=== PATIENT | male | born 1950 | race Caucasian/White ===

== ENCOUNTER → 2019-09-26 11:28 | Outpatient (BNVA) | payer MEDICARE, OTHER, SELFPAY | PROVIDERS: Family Provider Family Medicine; PCP Nurse Practitioner; Visit Provider Nurse Practitioner | DX: I48.11 Longstanding persistent atrial fibrillation (principal) | CPT/HCPCS: 80053; 84443; 85025 ==

== ENCOUNTER → 2019-09-27 09:19 | Outpatient (BNVA) | payer MEDICARE, OTHER, SELFPAY | PROVIDERS: Family Provider Family Medicine; PCP Nurse Practitioner; Visit Provider Nurse Practitioner | DX: M79.671 Pain in right foot (principal) | CPT/HCPCS: 73630 ==

== ENCOUNTER 2020-04-01 06:00 | Outpatient (RCR) | payer MEDICARE, OTHER, SELFPAY | END 2020-04-23 23:59 | disposition home or self-care (01) | LOC: TPT 06:00 | PROVIDERS: Family Provider Family Medicine; PCP Family Medicine; Referring Provider Nurse Practitioner Family; Visit Provider Nurse Practitioner Family | DX: M54.5 Low back pain (principal) | CPT/HCPCS: 97110; 97161 ==

== ENCOUNTER 2020-04-24 06:00 | Outpatient (RCR) | payer MEDICARE, OTHER, SELFPAY | END 2020-05-24 23:59 | disposition home or self-care (01) | LOC: TPT 06:00 | PROVIDERS: Family Provider Family Medicine; PCP Family Medicine; Referring Provider Nurse Practitioner Family; Visit Provider Nurse Practitioner Family | DX: M54.5 Low back pain (principal) | CPT/HCPCS: 97110; 97140; 97164 ==

== ENCOUNTER 2020-05-25 06:00 | Outpatient (RCR) | payer MEDICARE, OTHER, SELFPAY | END 2020-06-21 23:59 | disposition home or self-care (01) | LOC: TPT 06:00 | PROVIDERS: Family Provider Family Medicine; PCP Family Medicine; Referring Provider Nurse Practitioner Family; Visit Provider Nurse Practitioner Family | DX: M54.5 Low back pain (principal) | CPT/HCPCS: 97110; 97140; 97164 ==

== ENCOUNTER 2020-06-22 06:00 | Outpatient (RCR) | payer MEDICARE, OTHER, SELFPAY | END 2020-07-22 23:59 | disposition home or self-care (01) | LOC: TPT 06:00 | PROVIDERS: Family Provider Family Medicine; PCP Family Medicine; Referring Provider Nurse Practitioner Family; Visit Provider Nurse Practitioner Family | DX: M54.5 Low back pain (principal) | CPT/HCPCS: 97110; 97140 ==

== ENCOUNTER → 2020-12-24 10:25 | Outpatient (BNVA) | payer MEDICARE, OTHER, SELFPAY | PROVIDERS: Family Provider Family Medicine; PCP Nurse Practitioner; Visit Provider Nurse Practitioner | DX: I48.11 Longstanding persistent atrial fibrillation (principal); Z13.6 Encounter for screening for cardiovascular disorders; K21.9 Gastro-esophageal reflux disease without esophagitis | CPT/HCPCS: 80053; 80061; 81000; 85025 ==

== ENCOUNTER 2021-05-12 08:47 | Outpatient (CLI) | payer MEDICARE, OTHER, SELFPAY ==
[2021-05-12 09:43] LABS: Blood Urea Nitrogen 24 mg/dL (8-23); Glomerular Filtration Rate 83.7 mL/min (90-130)
--- NOTE | 2021-05-12 10:00 | CT_ITS ---
WS: [id number] CT ABDOMEN AND PELVIS WITH CONTRAST HISTORY: R10.9 - Unspecified abdominal pain TECHNIQUE: Imaging performed of the abdomen and pelvis with IV contrast. Single phase imaging of the abdomen. Coronal and sagittal reformats are submitted. All CT scans at [facility] use at [address] one of these dose optimization techniques: automated exposure control; mA and/or kV adjustment per patient size (includes targeted exams where dose is matched to clinical indication); or iterative re construction. IV CONTRAST: Omnipaque 300; 95 mL IV. Oral contrast: Yes. DLP: 1875.11 mGy.cm COMPARISON: 08/27/2018 and 03/28/2018 Lower thorax: Lung bases are clear. Heart is normal size. No hiatal hernia. Liver/biliary system: Normal size liver. There is very mild central bile duct dilatation. Probably re lated to the cholecystectomy. Gallbladder: Status post cholecystectomy. Pancreas: Normal size pancreas and pancreatic duct. No adjacent inflammation. Spleen: Normal size spleen. No mass or infarct. Adrenal glands: Normal. Right kidney: Normal size kidney. Nonobstructing tiny calcifications are present in the renal pelvis. No ureteral calcification. No mass. Left kidney: Nonobstructing renal calcifications. No solid mass or obstruction. No ureteral calcifica tion. Aorta: Mild atherosclerosis with no aneurysm. Lymphadenopathy: None. Free fluid: None. GI tract: Normal appendix. Stomach is nondistended resulting in thickening of the wall. There is mild diffuse constipation throughout the colon with overlapping and tortuous loops. There are several div erticula in the distal and sigmoid colon. No evidence for diverticulitis. Abdominal wall: Small fat-containing umbilical hernia. Pelvis: No free fluid or adenopathy within the pelvis. Normally distended urinary bladder. There is a small amount of air within the urinary bladder. No wall thickening. Bones: Advanced degenerative changes in the lumbar spine. Prior L1 kyphoplasty for compression fractu res stability. Large laminectomy defects are noted at L4 and L5. CT/CT abdomen pelvis w con* [id number] IMPRESSION: 1. Prior cholecystectomy. 2. Mild central bile duct dilatation is probably on the basis of cholecystecto my and aging. 3. Nonobstructing bilateral renal calculi. 4. Descending and sigmoid diverticulosis without acute diverticulitis. 5. Small amount of air in the urinary bladder. Differentials to consider are g as producing organisms secondary to infection or enterovesical fistula. By imag ing there is no evidence for a fistula.
[2021-05-12] MEDS: iohexol 300 mg/mL 50 mL Btl IV (11:01)
[2021-05-12] MEDS: iohexol 300 mg/mL 100 mL Btl IV (11:02)
== END 2021-05-12 08:48 | disposition home or self-care (01) ==
LOC: RAD 08:50
PROVIDERS: PCP Physician Assistant; Visit Provider Surgery
DX: R10.9 Unspecified abdominal pain (principal); Z90.49 Acquired absence of other specified parts of digestive tract; N20.0 Calculus of kidney; K57.30 Diverticulosis of large intestine without perforation or abscess without bleeding
CPT/HCPCS: 36415; 74177; 82565; 84520

== ENCOUNTER 2021-05-20 06:00 | Outpatient (RCR) | payer MEDICARE, OTHER, SELFPAY | END 2021-05-24 23:59 | disposition home or self-care (01) | LOC: TPT 06:00 | PROVIDERS: PCP Physician Assistant; Referring Provider Orthopaedic Surgery; Visit Provider Orthopaedic Surgery | DX: Z47.1 Aftercare following joint replacement surgery (principal); Z96.652 Presence of left artificial knee joint | CPT/HCPCS: 87635; 97110; 97140; 97162 ==

== ENCOUNTER 2021-05-25 06:00 | Outpatient (RCR) | payer MEDICARE, OTHER, SELFPAY | END 2021-06-21 23:59 | disposition home or self-care (01) | LOC: TPT 06:00 | PROVIDERS: PCP Physician Assistant; Referring Provider Orthopaedic Surgery; Visit Provider Orthopaedic Surgery | DX: Z47.1 Aftercare following joint replacement surgery (principal); Z96.652 Presence of left artificial knee joint | CPT/HCPCS: 97110; 97140; 97164 ==

== ENCOUNTER 2021-06-22 06:00 | Outpatient (RCR) | payer MEDICARE, OTHER, SELFPAY | END 2021-07-22 23:59 | disposition home or self-care (01) | LOC: TPT 06:00 | PROVIDERS: PCP Physician Assistant; Referring Provider Orthopaedic Surgery; Visit Provider Orthopaedic Surgery | DX: Z47.1 Aftercare following joint replacement surgery (principal); Z96.652 Presence of left artificial knee joint | CPT/HCPCS: 97110; 97140; 97164 ==

== ENCOUNTER 2021-07-23 06:00 | Outpatient (RCR) | payer MEDICARE, OTHER, SELFPAY | END 2021-08-21 23:59 | disposition home or self-care (01) | LOC: TPT 06:00 | PROVIDERS: PCP Physician Assistant; Referring Provider Orthopaedic Surgery; Visit Provider Orthopaedic Surgery | DX: Z47.1 Aftercare following joint replacement surgery (principal); Z96.652 Presence of left artificial knee joint | CPT/HCPCS: 97032; 97110; 97140 ==

== ENCOUNTER 2021-08-22 06:00 | Outpatient (RCR) | payer MEDICARE, OTHER, SELFPAY | END 2021-09-21 23:59 | disposition home or self-care (01) | LOC: TPT 06:00 | PROVIDERS: PCP Physician Assistant; Referring Provider Orthopaedic Surgery; Visit Provider Orthopaedic Surgery | DX: Z47.1 Aftercare following joint replacement surgery (principal); Z96.652 Presence of left artificial knee joint | CPT/HCPCS: 97032; 97110; 97140; 97164 ==

== ENCOUNTER 2021-10-22 06:00 | Outpatient (RCR) | payer MEDICARE, OTHER, SELFPAY | END 2021-11-21 23:59 | disposition home or self-care (01) | LOC: TPT 06:00 | PROVIDERS: PCP Physician Assistant; Referring Provider Orthopaedic Surgery; Visit Provider Orthopaedic Surgery | DX: Z47.1 Aftercare following joint replacement surgery (principal); M25.662 Stiffness of left knee, not elsewhere classified; Z96.659 Presence of unspecified artificial knee joint | CPT/HCPCS: 97032; 97110; 97140; 97164 ==

== ENCOUNTER 2021-11-22 06:00 | Outpatient (RCR) | payer MEDICARE, OTHER, SELFPAY | END 2021-12-22 23:59 | disposition home or self-care (01) | LOC: TPT 06:00 | PROVIDERS: PCP Physician Assistant; Visit Provider Orthopaedic Surgery | DX: Z96.652 Presence of left artificial knee joint (principal) | CPT/HCPCS: 97110; 97140; 97164 ==

== ENCOUNTER 2021-12-23 06:00 | Outpatient (RCR) | payer MEDICARE, OTHER, SELFPAY | END 2022-01-21 23:59 | disposition home or self-care (01) | LOC: TPT 06:00 | PROVIDERS: PCP Physician Assistant; Visit Provider Orthopaedic Surgery | DX: Z96.652 Presence of left artificial knee joint (principal) | CPT/HCPCS: 97110; 97140 ==

== ENCOUNTER 2022-01-22 06:00 | Outpatient (RCR) | payer MEDICARE, OTHER, SELFPAY | END 2022-02-08 23:59 | disposition home or self-care (01) | LOC: TPT 06:00 | PROVIDERS: PCP Physician Assistant; Visit Provider Orthopaedic Surgery | DX: Z96.652 Presence of left artificial knee joint (principal) | CPT/HCPCS: 97110; 97164 ==

== ENCOUNTER 2022-10-24 06:00 | Outpatient (RCR) | payer MEDICARE, OTHER, SELFPAY | END 2022-11-21 23:59 | disposition home or self-care (01) | LOC: APT 06:00 | PROVIDERS: Visit Provider Specialist/Technologist Athletic Trainer | DX: Z47.1 Aftercare following joint replacement surgery (principal); Z96.652 Presence of left artificial knee joint | CPT/HCPCS: 97110; 97112; 97140; 97163; 97530 ==

== ENCOUNTER 2022-11-22 06:00 | Outpatient (RCR) | payer MEDICARE, OTHER, SELFPAY | END 2022-12-22 23:59 | disposition home or self-care (01) | LOC: APT 06:00 | PROVIDERS: Visit Provider Specialist/Technologist Athletic Trainer | DX: Z47.1 Aftercare following joint replacement surgery (principal); Z96.652 Presence of left artificial knee joint | CPT/HCPCS: 97110; 97112; 97140; 97530 ==

== ENCOUNTER → 2022-12-19 08:40 | Outpatient (BNVA) | payer MEDICARE, OTHER, SELFPAY | PROVIDERS: PCP Nurse Practitioner; Visit Provider Nurse Practitioner | DX: K21.9 Gastro-esophageal reflux disease without esophagitis (principal) | CPT/HCPCS: 80053 ==

== ENCOUNTER 2022-12-23 06:00 | Outpatient (RCR) | payer MEDICARE, OTHER, SELFPAY | END 2023-01-21 23:59 | disposition home or self-care (01) | LOC: APT 06:00 | PROVIDERS: PCP Nurse Practitioner; Visit Provider Specialist/Technologist Athletic Trainer | DX: Z47.1 Aftercare following joint replacement surgery (principal); Z96.652 Presence of left artificial knee joint | CPT/HCPCS: 97110; 97140; 97530 ==

== ENCOUNTER 2023-01-22 06:00 | Outpatient (RCR) | payer MEDICARE, OTHER, SELFPAY | END 2023-02-21 23:59 | disposition home or self-care (01) | LOC: APT 06:00 | PROVIDERS: PCP Nurse Practitioner; Visit Provider Specialist/Technologist Athletic Trainer | DX: Z98.890 Other specified postprocedural states (principal) | CPT/HCPCS: 97140; 97530 ==

== ENCOUNTER 2023-02-22 06:00 | Outpatient (RCR) | payer MEDICARE, SELFPAY | END 2023-03-23 23:59 | disposition home or self-care (01) | LOC: APT 06:00 | PROVIDERS: PCP Nurse Practitioner; Visit Provider Specialist/Technologist Athletic Trainer | DX: Z47.1 Aftercare following joint replacement surgery (principal); Z96.652 Presence of left artificial knee joint | CPT/HCPCS: 97110; 97112; 97140; 97530 ==

== ENCOUNTER 2023-03-24 06:00 | Outpatient (RCR) | payer MEDICARE, SELFPAY | END 2023-04-23 23:59 | disposition home or self-care (01) | LOC: APT 06:00 | PROVIDERS: PCP Nurse Practitioner; Visit Provider Specialist/Technologist Athletic Trainer | DX: Z47.1 Aftercare following joint replacement surgery (principal); Z96.652 Presence of left artificial knee joint | CPT/HCPCS: 97110; 97112; 97530 ==

== ENCOUNTER 2024-07-31 23:05 | Emergency (ER) | payer MEDICARE, OTHER, SELFPAY ==
[2024-07-31 23:08] VITALS: BP 139/96; PULSE 60; RESP 16; TEMP 36.3; O2SAT 88; BMI 34.7
[2024-07-31 23:14] VITALS: BP 139/96; PULSE 60; RESP 17; O2SAT 92
--- NOTE | 2024-07-31 23:19 | CTR_ITS ---
PROCEDURE INFORMATION: Exam: CT Cervical Spine Without Contrast Exam date and time: 07/31/2024 11:53 PM Age: 73 years old Clinical indication: Injury or trauma; Fall; Blunt trauma; Additional info: Fall/neckpain TECHNIQUE: Imaging protocol: Computed tomography of the cervical spine without contrast. Radiation optimization: All CT scans at this facility use at least one of these dose optimization techniques: automated exposure control; mA and/or kV adjustment per patient size (includes targeted exams where dose is matched to clinical indication); or iterative reconstruction. COMPARISON: CT head wo con* [id number] 07/31/2024 11:50 PM RADIATION DOSE METRICS: Total DLP (mGy-cm): 234.17 FINDINGS: Bones: Moderate to severe multilevel spine degenerative changes including degenerative disc disease, spondylosis and facet degenerative changes. Multilevel bilateral foraminal stenosis. Lungs: Lung apices are normal. Lymph nodes: Borderline to mild bilateral supraclavicular and neck base adenopathy which may be reactive versus neoplastic. Soft tissues: Unremarkable. CT/CT cervical spin wo con* [id number] IMPRESSION: Borderline to mild bilateral supraclavicular and neck base adenopathy which may be reactive versus neoplastic.
--- NOTE | 2024-07-31 23:19 | XRR_ITS ---
PROCEDURE INFORMATION: Exam: XR Chest Exam date and time: 07/31/2024 11:20 PM Age: 73 years old Clinical indication: Injury or trauma; Fall; Blunt trauma (contusions or hematomas) TECHNIQUE: Imaging protocol: Radiologic exam of the chest. Views: 1 view. COMPARISON: CR XR ribs RT mn 3V w CXR1V [id number] 12/20/2023 1:21 PM FINDINGS: Tubes, catheters and devices: Metallic recorder/micro pacemaker device over the anterior chest wall. Stable pain management/neurostimulator device. Lungs: Unremarkable. No consolidation. Pleural spaces: Unremarkable. No pleural effusion. No pneumothorax. Heart/Mediastinum: Unremarkable. No cardiomegaly. Bones/joints: Unremarkable. Other findings: Lordotic chest x-ray. XR/XR chest 1V portable [id number] IMPRESSION: No acute findings.
--- NOTE | 2024-07-31 23:19 | CTR_ITS ---
PROCEDURE INFORMATION: Exam: CT Head Without Contrast Exam date and time: 07/31/2024 11:50 PM Age: 73 years old Clinical indication: Injury or trauma; Fall; Blunt trauma (contusions or hematomas); Additional info: Fall/head injury, on blood thinner TECHNIQUE: Imaging protocol: Computed tomography of the head without contrast. Radiation optimization: All CT scans at this facility use at least one of these dose optimization techniques: automated exposure control; mA and/or kV adjustment per patient size (includes targeted exams where dose is matched to clinical indication); or iterative reconstruction. COMPARISON: No relevant prior studies available. RADIATION DOSE METRICS: Total DLP (mGy-cm): 1372.28 FINDINGS: Brain: Normal. No hemorrhage. Unremarkable white matter. No mass effect. Cerebral ventricles: No ventriculomegaly. Paranasal sinuses: Mild left maxillary sinus disease. Mild left frontal sinus disease. Mastoid air cells: Partial right mastoidectomy. Bones: Unremarkable. No acute fracture. Soft tissues: Unremarkable. CT/CT head wo con* [id number] IMPRESSION: 1. Mild left maxillary sinus disease. 2. Mild left frontal sinus disease. 3. Partial right mastoidectomy. No acute intracranial findings.
--- NOTE | 2024-07-31 23:27 | W.ED.FALL ---
HPI - Fall General: Chief Complaint: Fall Stated Complaint: Fall Time Seen by Provider: 07/31/24 23:09 Source: patient and RN notes reviewed Mode of arrival: EMS Limitations: no limitations History of Present Illness: Patient is a 73-year-old male with history of atrial fibrillation who presents to the emergency department by EMS for a fall just prior to arrival. Patient reportedly fell while stepping out of his large full-size truck, ultimately does not remember if he simply lost his footing or if he had any preceding symptoms but does report that he hit his head and is currently on Xarelto. He is currently reporting a headache and left-sided neck pain, he does not believe that he had any dizziness, chest pain, palpitations, or other symptoms preceding the fall but again states he ultimately is not sure. Also unsure if he lost consciousness, he was reportedly on the ground on the ambulance found him. Notes history of chronic issues with his legs, and notes that he has chronic breathing issues requiring CPAP at night but denies any history of COPD. Also has previous history of CVA. He notes while he was on the ground he had some weakness of his left side, this has since resolved. No other symptoms reported at this time, patient is at baseline mentation alert and oriented x 4 with no focal neurological deficit. MD complaint: fall Onset (ago): minute(s) Fall from: from height (distance) Fall witnessed: no Place fall occurred: street Loss of consciousness: Unsure Prolonged down time: unclear Symptoms prior to fall: other (unsure) Location of injury: head and neck Associated symptoms-after fall: Reports headache(s) and neck pain; Denies abdominal pain, chest pain or lightheadedness Related Data Home Medications ?Medication ?Instructions ?Recorded ?Confirmed cetirizine 10 mg capsule 10 mg PO DAILY 05/06/19 10/23/23 oxycodone 7.5 mg PO Q4H 05/06/19 10/23/23 rosuvastatin 10 mg tablet 10 mg PO ONCE 05/06/19 10/23/23 tamsulosin 0.4 mg capsule 0.4 mg PO BID 05/06/19 10/23/23 alendronate 70 mg tablet (Fosamax) mg PO .weekly 12/29/21 10/23/23 calcium 500 mg (as 1 tab PO .2 times day 12/29/21 10/23/23 carbonate)-vitamin D3 15 mcg (600 unit) tablet (Os-Clark 500 + D3) memantine 21 mg capsule See Rx Instructions PO .COMPLEX 12/29/21 10/23/23 sprinkle,extended release 24hr furosemide 40 mg tablet 40 mg PO DAILY 12/15/22 10/23/23 gabapentin 300 mg capsule 300 mg PO TID 12/15/22 10/23/23 losartan 50 mg tablet 50 mg PO DAILY 12/15/22 10/23/23 potassium chloride 20 mEq 20 meq PO DAILY 12/15/22 10/23/23 tablet,extended release(part/cryst) allopurinol 100 mg tablet 100 mg PO DAILY 10/23/23 10/23/23 donepezil 10 mg tablet 10 mg PO DAILY 10/23/23 10/23/23 indapamide 2.5 mg tablet 2.5 mg PO DAILY 10/23/23 10/23/23 penicillin V potassium 500 mg 500 mg PO BID 10/23/23 10/23/23 tablet trazodone 50 mg tablet 50 mg PO DAILY 10/23/23 10/23/23 Previous Rx's ?Medication ?Instructions ?Recorded duloxetine 30 mg capsule,delayed 60 mg (2 x 30 mg) PO DAILY #90 caps 12/29/21 release (Cymbalta) famciclovir 500 mg tablet 500 mg PO Q12H PRN herpes simplex 12/15/22 #60 tabs pantoprazole 40 mg tablet,delayed 40 mg PO DAILY #90 tabs 10/23/23 release (Protonix) rivaroxaban 20 mg tablet (Xarelto) 20 mg PO DAILY #30 tabs 10/23/23 Allergies Allergy/AdvReac Type Severity Reaction Status Date / Time amoxicillin (From Augmentin) Allergy Intermediate gets Verified 07/31/24 23:13 really sick, like the flu clavulanic acid (From Allergy Intermediate gets Verified 07/31/24 23:13 Augmentin) really sick, like the flu hydromorphone (From Dilaudid) Allergy coded Verified 07/31/24 23:13 Review of Systems General: Reports: 10 or more systems reviewed and unremarkable except in HPI and below Const: Reports: other (fall); Denies: fever(s), chills or fatigue Eyes: Denies: change in vision ENMT: Denies: throat pain, ear or mastoid pain or nasal discharge Card: Denies: chest pain, palpitations, swelling of feet/ankles or lightheadedness Resp: Denies: dyspnea, productive cough or wheezing GI: Denies: abdominal pain, nausea, vomiting, diarrhea or constipation : Denies: flank pain, difficulty urinating, dysuria or urinary frequency Musc: Reports: neck pain; Denies: back pain or joint pain Skin/Breast: Denies: rash Neuro: Reports: headache(s) and numbness in extremities (left side/resolved); Denies: weakness in extremities PFSH ED PFSH: Medical History GERD (gastroesophageal reflux disease) Rachel-Sparks tear History of renal calculi Atrial fibrillation Osteoporosis Surgical History History of knee replacement Status post left inguinal hernia repair Status post right inguinal hernia repair S/P ear surgery History of umbilical hernia repair History of colonoscopy 2016, at [facility]/27/2022 History of esophagogastroduodenoscopy 2019 Status post laparoscopic cholecystectomy History of GI bleed repair GI bleed in @ [facility] History of kyphoplasty L1 2013 History of heart artery stent 2012 Family History Other Cancer Diabetes Heart disease Social History Smoking and tobacco/nicotine status: former use of tobacco/nicotine Second hand smoke exposure: No Alcohol intake: never Substance/Drug Use: never Adopted: No Caregiver/support person: No Lives independently: Yes Household members: spouse Housing: House Marital status: service: No Current occupational status: retired Do you think of yourself as: Straight/Heterosexual Current gender identity: Male Physical Exam Const: COMMON NORMALS: no acute distress, patient oriented x3 and no limitations GENERAL APPEARANCE: cooperative, comfortable and well developed ORIENTATION/CONSCIOUSNESS: Yes awake, Yes oriented to person, Yes oriented to place and Yes oriented to time HENMT: COMMON NORMALS: normocephalic, atraumatic and hearing grossly normal bilaterally HEAD & SCALP: normocephalic and atraumatic; no Deal's sign, no palpable skull fracture, no raccoon eyes and no scalp tenderness Eye: COMMON NORMALS: Equal, round and reactive pupils present, EOMs intact bilaterally and conjunctivae normal CONJUNCTIVA: Yes conjunctivae normal PUPIL: Yes Equal, round and reactive pupils present Neck/C-Spine: COMMON NORMALS: full ROM, supple and no JVD OTHER: No cervical spine tenderness Chest: COMMONS NORMALS: normal inspection of the chest and normal palpation of entire chest wall Resp: COMMON NORMALS: normal respiratory effort, No retractions, No use of accessory muscles and clear to auscultation bilaterally AUSCULTATION: clear to auscultation bilaterally Cardio: COMMON NORMALS: no JVD, regular rate, regular rhythm, No clicks present (Cardio), No murmurs present (Cardio) and No rub (Cardio) RATE: regular rate RHYTHM: regular rhythm GI: COMMON NORMALS: Normal to inspection, nondistended, normoactive bowel sounds present, Soft to palpation and non-tender AUSCULTATION: Yes normoactive bowel sounds PALPATION: Yes Soft to palpation RECTAL EXAM: Yes deferred Back/Pelvis: COMMON NORMALS: thoracic and lumbar spine normal to inspection, no thoracic nor lumbar tenderness and thoraco-lumbar ROM normal Extremity: COMMON NORMALS: normal to inspection, full ROM, capillary refill normal and no pedal edema Neuro: COMMON NORMALS: patient oriented x3, CN's II-XII intact bilaterally, moves all extremities, no focal motor deficits and no sensory deficits noted SENSORIUM/ORIENTATION: Yes oriented to person, Yes oriented to place and Yes oriented to time MOTOR EXAM: 5/5 motor strength present throughout, Pronator motor function not present, no tremor noted, Normal motor muscle tone present throughout and Motor abnormalities not present Psych: COMMON NORMALS: mental status grossly normal and Normal thought process present THOUGHT PROCESS: Normal thought process present Skin: COMMON NORMALS: no rashes or lesions noted GENERAL SKIN EXAM: no rashes or lesions noted Course Vital Signs: Vital signs: Vital Signs Temperature 97.4 F L 07/31/24 23:08 Pulse Rate 62 08/01/24 01:00 Respiratory Rate 12 08/01/24 00:30 Blood Pressure 124/92 08/01/24 01:00 Pulse Oximetry 94 08/01/24 01:00 Oxygen Delivery Me thod Room Air 07/31/24 23:08 MDM - Fall Medical Decision Making Patient presented via ambulance after a fall, history was little murky as unsure if this was preceded by symptoms or trip and fall. He is on a blood thinner and did hit his head. Stated that he had some transient left-sided numbness that resolved on arrival. Also has a history of CVA. CT head and neck cleared of any injuries. Initially was hypoxic 88% on room air, placed on 2 L but was weaned off of this prior to discharge. Does have a history of sleep apnea uses CPAP at night and family states that his oxygen does tend to run this low at night. Of note, labs showed hemoglobin 9.5, patient states he does not notice any black tarry stools or other sources of blood loss potentially, and he had no abdominal pain on exam. CT abdomen pelvis did not show any acute findings, family notes he recently had colonoscopy a year ago due to anemia for which they only found a couple of polyps which were removed. His baseline troponin was unremarkable, EKG unremarkable, coags unremarkable, and rest of lab work ultimately unremarkable. I discussed with patient importance of following up in regards to his anemia as well as for general reevaluation, patient asymptomatic at this time and family agreeing with this plan. Did discuss return precautions of which they verbalized understanding. Discussed case with Dr. Crain. Lab Data 07/31/24 23:20 07/31/24 23:20 Radiology Impressions Cervical Spine CT 07/31/24 23:19 IMPRESSION: Borderline to mild bilateral supraclavicular and neck base adenopathy which may be reactive versus neoplastic. Chest X-Ray 07/31/24 23:19 IMPRESSION: No acute findings. Head CT 07/31/24 23:19 IMPRESSION: 1. Mild left maxillary sinus disease. 2. Mild left frontal sinus disease. 3. Partial right mastoidectomy. No acute intracranial findings. Abdomen/Pelvis CT 07/31/24 23:41 IMPRESSION: No acute findings. Laboratory Results WBC 8.71 10^3/uL (3.29-11.43) 07/31/24 23:20 RBC 4.48 10^6/uL (3.85-5.65) 07/31/24 23:20 Hgb 9.50 g/dL (11.27-16.99) L 07/31/24 23:20 Hct 33.0 % (37-53) L 07/31/24 23:20 MCV 73.7 fl (82-101) L 07/31/24 23:20 MCH 21.2 pg (27-33) L 07/31/24 23:20 MCHC 28.8 g/dL (30-55) L 07/31/24 23:20 RDW 20.1 % (12.1-15.1) H 07/31/24 23:20 Plt Count 282 10^3/cmm (157-399) 07/31/24 23:20 MPV 10.0 fL (7.4-10.4) 07/31/24 23:20 Neut % (Auto) 62.5 % 07/31/24 23:20 Lymph % (Auto) 21.6 % 07/31/24 23:20 [place] % (Auto) 11.0 % 07/31/24 23:20 Eos % (Auto) 4.0 % 07/31/24 23:20 Baso % (Auto) 0.6 % 07/31/24 23:20 Neut # (Auto) 5.44 10^3/uL (1.8-7.7) 07/31/24 23:20 Lymph # (Auto) 1.9 10^3/uL (0.8-4.8) 07/31/24 23:20 [place] # (Auto) 1.0 10^3/uL (0.2-0.9) H 07/31/24 23:20 Eos # (Auto) 0.4 10^3/uL (0.0-0.8) 07/31/24 23:20 Baso # (Auto) 0.1 10^3/uL (0.0-0.1) 07/31/24 23:20 Nucleated RBC % (auto) 0 % 07/31/24 23:20 Nucleated RBCs # 0.0 /100WBC 07/31/24 23:20 PT 15.60 SECONDS (12.1-14.9) H 07/31/24 23:20 INR 1.16 (0.8-1.2) 07/31/24 23:20 APTT 31.9 SECONDS (23.9-36.7) 07/31/24 23:20 Sodium 141 mmol/L (136-145) 07/31/24 23:20 Potassium 4.1 mmol/L (3.5-5.1) 07/31/24 23:20 Chloride 103 mmol/L (98-107) 07/31/24 23:20 Carbon Dioxide 27 mmol/L (22-29) 07/31/24 23:20 Anion Gap 15.1 (5-19) 07/31/24 23:20 BUN 19 mg/dL (8-23) 07/31/24 23:20 Creatinine 1.2 mg/dL (0.7-1.2) 07/31/24 23:20 GFR Calculation Not Reportable 07/31/24 23:20 Glucose 94 mg/dL (65-115) 07/31/24 23:20 Calculated Osmolality 294 mOsm/kg (285-295) 07/31/24 23:20 Calcium 8.9 mg/dL (8.5-10.5) 07/31/24 23:20 Total Bilirubin 0.2 mg/dL (0.15-1.2) 07/31/24 23:20 AST 20 U/L (0-40) 07/31/24 23:20 ALT 11 U/L (0-41) 07/31/24 23:20 Alkaline Phosphatase 103 U/L (40-130) 07/31/24 23:20 Troponin T Baseline 16 ng/L (0-15) H 07/31/24 23:20 Total Protein 7.1 g/dL (6.6-8.7) 07/31/24 23:20 Albumin 4.1 g/dL (3.5-5.2) 07/31/24 23:20 Globulin 3.0 g/dL (1.3-4.6) 07/31/24 23:20 All radiology interpretation(s) finalized by discharge Discharge Plan Discharge Patient Disposition: Home Clinical Impression: Fall Qualifiers: Encounter type: initial encounter Qualified Code(s): W19.XXXA - Unspecified fall, initial encounter CHI (closed head injury) Qualifiers: Encounter type: initial encounter Qualified Code(s): S09.90XA - Unspecified injury of head, initial encounter Anemia Qualifiers: Anemia type: unspecified type Qualified Code(s): D64.9 - Anemia, unspecified Condition: Stable Prescriptions: No Action rosuvastatin 10 mg tablet 10 mg PO ONCE tamsulosin 0.4 mg capsule 0.4 mg PO BID oxycodone 7.5 mg PO Q4H Rx Instructions: 1/2 tab cetirizine 10 mg capsule 10 mg PO DAILY potassium chloride 20 mEq tablet,ER particles/crystals 20 meq PO DAILY furosemide 40 mg tablet 40 mg PO DAILY losartan 50 mg tablet 50 mg PO DAILY famciclovir 500 mg tablet 500 mg PO Q12H PRN (Reason: herpes simplex) Qty: 60 0RF donepezil 10 mg tablet 10 mg PO DAILY penicillin V potassium 500 mg tablet 500 mg PO BID indapamide 2.5 mg tablet 2.5 mg PO DAILY trazodone 50 mg tablet 50 mg PO DAILY allopurinol 100 mg tablet 100 mg PO DAILY pantoprazole [Protonix] 40 mg tablet,delayed release (DR/EC) 40 mg PO DAILY Qty: 90 3RF Xarelto 20 mg tablet 20 mg PO DAILY Qty: 30 11RF duloxetine [Cymbalta] 30 mg capsule,delayed release(DR/EC) 60 mg PO DAILY Qty: 90 0RF memantine 21 mg capsule,sprinkle,ER 24hr See Rx Instructions PO .COMPLEX Rx Instructions: 10mg orally 2 time daily; alendronate [Fosamax] 70 mg tablet PO .weekly calcium carbonate-vitamin D3 [Os-Clark 500 + D3] 500 mg-15 mcg (600 unit) tablet 1 tab PO .2 times day gabapentin 300 mg capsule 300 mg PO TID Discharge Orders: Discharge ED (Routine); Ordered 08/01/24 Ordered By: William Perrin Referrals: Ivette Cordoba PA [Primary Care Provider] - Patient Instructions: Anemia (ED) Activity Restrictions/Additional Instructions: Follow-up with your PCP this week as we discussed. Please return with any neurological deficits such as unilateral weakness, numbness, or tingling. Return with any facial droop or slurred speech. Please continue taking your home medications including your blood thinner. Print Language: Portuguese Coding Level of Care Code ED Branch Officer for Gwen Perez
[2024-07-31 23:35] LABS: Basophils # 0.1 10^3/uL (0.0-0.1); Basophils % 0.6 %; Eosinophils # 0.4 10^3/uL (0.0-0.8); Lymphocytes # 1.9 10^3/uL (0.8-4.8); Lymphocytes % 21.6 %; Mean Corpuscular HGB Conc 28.8 g/dL (30-55); Mean Corpuscular Hemoglobin 21.2 pg (27-33); Mean Corpuscular Volume 73.7 fl (82-101); Neutrophils # 5.44 10^3/uL (1.8-7.7); Neutrophils % 62.5 %; Nucleated Red Blood Cells % 0 %; Platelet Count 282 10^3/cmm (157-399); Red Blood Count 4.48 10^6/uL (3.85-5.65); Red Cell Distribution Width 20.1 % (12.1-15.1); White Blood Count 8.71 10^3/uL (3.29-11.43)
--- NOTE | 2024-07-31 23:35 | ECG_ITS ---
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 Measurements Intervals [place] Rate: 56 P: 132 NH: 215 QRS: 96 QRSD: 109 T: 71 QT: 419 QTc: 405 Interpretive Statements SINUS BRADYCARDIA WITH FIRST DEGREE AV BLOCK BORDERLINE RIGHT AXIS DEVIATION [QRS AXIS > 90] INCOMPLETE RIGHT BUNDLE BRANCH BLOCK [90+ ms QRS DURATION, TERMINAL R IN V1/V2, 40+ ms S IN I/aVL/V4/V5/V6] Compared to ECG 08/27/2018 16:12:37 First degree AV block now present Incomplete right bundle-branch block now present Electronically Signed On 08-03-2024 13:13:23 CDT by Josefa Najera M.D. [email or web address]
--- NOTE | 2024-07-31 23:41 | CTR_ITS ---
PROCEDURE INFORMATION: Exam: CT Abdomen And Pelvis With Contrast Exam date and time: 07/31/2024 11:58 PM Age: 73 years old Clinical indication: Injury or trauma; Fall; Blunt; Generalized; Additional info: Fall/anemia TECHNIQUE: Imaging protocol: Computed tomography of the abdomen and pelvis with contrast. Radiation optimization: All CT scans at this facility use at least one of these dose optimization techniques: automated exposure control; mA and/or kV adjustment per patient size (includes targeted exams where dose is matched to clinical indication); or iterative reconstruction. Contrast material: ONMI 350; Contrast volume: 100 ml; Contrast route: INTRAVENOUS (IV); COMPARISON: CT abdomen pelvis w con* [id number] 05/12/2021 10:55 AM RADIATION DOSE METRICS: Total DLP (mGy-cm): 1219.43 FINDINGS: Tubes, catheters and devices: Spinal stimulator. Heart: Mild cardiomegaly. Liver: Punctate low-density hepatic lesions, possibly cysts. Gallbladder and biliary ducts: Cholecystectomy. Pancreas: Normal. No ductal dilation. Spleen: Normal. No splenomegaly. Adrenal glands: Normal. No mass. Kidneys and ureters: Normal. No hydronephrosis. Stomach and bowel: No acute inflammation or obstruction. Rare diverticuli sigmoid. Appendix: No evidence of appendicitis. Intraperitoneal space: Unremarkable. No free air. No significant fluid collection. Vasculature: Unremarkable. No abdominal aortic aneurysm. Lymph nodes: Unremarkable. No enlarged lymph nodes. Urinary bladder: Unremarkable as visualized. Reproductive: Unremarkable as visualized. Bones/joints: Diffuse degenerative change spine. Kyphoplasty L1. Posterior decompression L4-L5-S1. Soft tissues: Umbilical hernia containing fat. Other findings: CT/CT abdomen pelvis w con* [id number] IMPRESSION: No acute findings.
[2024-07-31 23:52] LABS: Troponin(5th) Baseline 16 ng/L (0-15)
[2024-07-31 23:53] LABS: INR 1.16 (0.8-1.2); Partial Thromboplastin Time 31.9 SECONDS (23.9-36.7)
[2024-07-31 23:54] LABS: Alanine Aminotransferase 11 U/L (0-41); Albumin Level 4.1 g/dL (3.5-5.2); Alkaline Phosphatase 103 U/L (40-130); Anion Gap 15.1 (5-19); Aspartate Amino Transferase 20 U/L (0-40); Blood Urea Nitrogen 19 mg/dL (8-23); Calcium 8.9 mg/dL (8.5-10.5); Carbon Dioxide 27 mmol/L (22-29); Chloride 103 mmol/L (98-107); Glucose 94 mg/dL (65-115); Osmolality Calculated 294 mOsm/kg (285-295); Potassium 4.1 mmol/L (3.5-5.1); Sodium 141 mmol/L (136-145); Total Bilirubin 0.2 mg/dL (0.15-1.2); Total Protein 7.1 g/dL (6.6-8.7)
[2024-08-01] MEDS: iohexol 350 mg/mL 500 mL Btl (per mL) IV (00:03)
[2024-08-01 00:14] VITALS: BP 141/79; PULSE 58; RESP 14; O2SAT 94
[2024-08-01 00:30] VITALS: BP 138/83; PULSE 58; RESP 12; O2SAT 95
[2024-08-01 01:00] VITALS: BP 124/92; PULSE 62; O2SAT 94
[2024-08-01 01:13] VITALS: BP 124/92; PULSE 63; O2SAT 92
== END 2024-08-01 01:15 | disposition home or self-care (01) ==
PROVIDERS: Emergency Provider Physician Assistant; PCP Physician Assistant
DX: S09.8XXA Other specified injuries of head, initial encounter (principal); D64.9 Anemia, unspecified; W19.XXXA Unspecified fall, initial encounter; Z87.891 Personal history of nicotine dependence
CPT/HCPCS: 36415; 70450; 71045; 72125; 74177; 80053; 84484; 85025; 85610; 85730; 93005; 99285

== ENCOUNTER 2024-08-19 13:55 | Oncology outpatient (recurring) (ONCR) | payer MEDICARE, OTHER, SELFPAY ==
[2024-08-19 14:40] VITALS: BP 107/64; PULSE 69; RESP 17; TEMP 36.4; O2SAT 91
[2024-08-19] MEDS: ferric carboxy (PYXIS) 750 MG in sodium chloride 0.9% (100 ml) 100 ML 345 MG IV (14:43)
[2024-08-19 15:37] VITALS: BP 106/68; PULSE 64; RESP 17; TEMP 36.6; O2SAT 92
== END 2024-08-21 23:59 | disposition home or self-care (01) ==
PROVIDERS: PCP Physician Assistant; Visit Provider Physician Assistant
DX: D50.9 Iron deficiency anemia, unspecified (principal); Z79.899 Other long term (current) drug therapy
CPT/HCPCS: J1439

== ENCOUNTER 2024-08-26 14:14 | Oncology outpatient (recurring) (ONCR) | payer MEDICARE, OTHER, SELFPAY ==
[2024-08-26 15:03] VITALS: BP 115/70; PULSE 64; RESP 18; TEMP 35.9; O2SAT 95
[2024-08-26] MEDS: ferric carboxy (PYXIS) 750 MG in sodium chloride 0.9% (100 ml) 100 ML 240 MG IV (15:20)
[2024-08-26 15:53] VITALS: BP 103/64; PULSE 75; RESP 17; TEMP 36.6; O2SAT 93
== END 2024-09-21 23:59 | disposition home or self-care (01) ==
LOC: ONCMED 14:14
PROVIDERS: PCP Physician Assistant; Visit Provider Physician Assistant
DX: D50.9 Iron deficiency anemia, unspecified (principal); Z79.899 Other long term (current) drug therapy
CPT/HCPCS: 96365; J1439

== ENCOUNTER 2024-12-23 05:00 | Outpatient (RCR) | payer MEDICARE, OTHER, SELFPAY | END 2025-01-21 23:59 | disposition home or self-care (01) | LOC: APT 05:00 | PROVIDERS: Visit Provider Physical Medicine & Rehabilitation | DX: Z47.1 Aftercare following joint replacement surgery (principal); Z96.651 Presence of right artificial knee joint | CPT/HCPCS: 97110; 97112; 97161; 97530 ==

== ENCOUNTER 2025-02-17 09:02 | Outpatient (RCR) | payer MEDICARE, OTHER, SELFPAY | END 2025-02-21 23:59 | disposition home or self-care (01) | LOC: APT 09:02 | PROVIDERS: Visit Provider Physical Medicine & Rehabilitation | DX: Z47.1 Aftercare following joint replacement surgery (principal); Z96.651 Presence of right artificial knee joint | CPT/HCPCS: 97110; 97112; 97140; 97530 ==

== ENCOUNTER 2025-02-25 08:59 | Outpatient (RCR) | payer MEDICARE, OTHER, SELFPAY | END 2025-03-07 07:11 | disposition home or self-care (01) | LOC: APT 08:59 | PROVIDERS: Visit Provider Physical Medicine & Rehabilitation | DX: Z47.1 Aftercare following joint replacement surgery (principal); Z96.651 Presence of right artificial knee joint | CPT/HCPCS: 97110; 97112; 97530 ==

== ENCOUNTER 2025-03-08 19:37 | Emergency (ER) | payer MEDICARE, OTHER, SELFPAY ==
--- OUTSIDE RECORDS SUMMARY | 2025-03-07 07:00 | XMS_ITS ---
Author Organization [facility] Address [address] [place] [address] Care Team Providers Care Insurance Claims Specialist Name Role Phone Ivette Blanco Primary Care Provider Heather ZavalaCynthia Luo Unavailable [phone] REASON FOR VISIT 1 month f/u [id number] Medications Medication SIG (Take, Route, Frequency, Duration) Notes Start Date End Date Status Xarelto *Pick strength-form from [employer] for eRX* Unknown tiZANidine HCl 4MG Tablet 1 tab orally twice daily; Duration: 30 days fill 30 days from last rx 01/23/2025 Active oxyCODONE-Acetaminophen 5-325 MG Tablet 0.5-1 tablet as needed Orally every 6 hrs; Duration: 30 days not to exceed 1 tablet per day or 30 tablets in a diaz Fill on 02/20/2025 02/20/2025 03/22/20 25 Active Buprenorphine HCl 8 MG Tablet Sublingual 1 tablet under the tongue and allow to dissolve Sublingual 3 times daily; Duration: 30 days fill on 02/24/2025 02/20/2025 03/26/20 25 Active Xarelto 20 MG Tablet 1 tablet with food Orally Once a day Unknown Sennosides-Docusate Sodium 8.6-50 MG Capsule 2 capsules at bedtime with a full glass of water as needed Orally Once a day; Duration: 30 day(s) 01/21/2020 Unknown Terbinafine daily Unknown Terbinafine 1 % Cream 1 application Externally Once a day Unknown tamsulosin *Reorder from [employer] for eRx and Interaction Alerts* Unknown Tamsulosin hydrochloride 0.4 MG Oral Capsule BID 02/21/2013 Unknown Pravastatin Sodium 40 MG Oral Tablet 02/21/2013 Unknown Rosuvastatin Calcium 10 MG Tablet 1 tablet Orally Once a day Unknown Probiotic Unknown rifAMPin 300 MG Capsule as directed Orally twice daily; Duration: 30 days 10/19/2021 Unknown oxaprozin 600 MG Oral Tablet 02/21/2013 Unknown Misc. Devices CPAP Unknow n Multivitamin Unknown Metoprolol Tartrate *Pick strength-form from [facility] for eRX* Unknown MiraLax 17 GM/SCOOP Powder as directed Orally Once a day; Duration: 30 day(s) 01/21/2020 Unknown Namenda Unknown Meloxicam 15 MG Tablet 1 tablet Orally Once a day Unknown Memantine HCl 10 MG Tablet 1 tablet Orally Twice a day Unknown Lysine 500 MG Tablet as directed Orally Unknown Magnesium Unknown Losartan Potassium U nknown Glucosamine Chond Cmp Advanced Unknown hydroCHLOROthiazide 25 MG Tablet 1 tablet in the morning Orally Once a day Unknown Gabapentin 300 MG Capsule TAKE 1 CAPSULE BY MOUTH IN THE MORNING AND 2 AT BEDTIME; Duration: 30 Unknown Lisinopril 20 MG Tablet 1/2 tab Orally Once a day Unknown Loratadine 10 MG Tablet 1 tablet Orally Once a day Unknown DULoxetine HCl 60 MG Capsule Delayed Release Particles Take 1 capsule by mouth once daily; Duration: 30 Unknown Famciclovir 500 MG Tablet 1 tablet Orally Twice a day Unknown Docusate Sodium 100 MG Oral Capsule 10/26/2018 Unknown Fosamax Plus D 70-2800 MG-UNIT Tablet 1 tablet 30 minutes before the first food, beverage or medicine of the day with plain water Orally Unknown Digoxin 125 MCG Tablet 1 tablet Orally once day 20 ML 3 tabs Unknown cetirizine hydrochloride 10 MG Oral Tablet 02/21/2013 Unknown Crestor *Pick strength-form from [facility] for eRX* Unknown Diclofenac Sodium 75 MG Tablet Delayed Release 1 tablet as needed Orally Twice a day; Duration: 30 days Discontinue Meloxicam Unknown dexAMETHasone 2 MG Tablet Day 1-2: 4 mg, q6Day 3-4: 2 mg, q6 Day 5-6: 2 mg, q12 Orally as directed; Duration: 6 days 11/14/2019 Unknown Dexilant 60 MG Capsule Delayed Release 1 capsule Orally Once a day Unknown Advil Liqui-Gels minis Unknown Alendronate Sodium 70 MG Tablet 1 tablet Orally every monday Unknown Baclofen 10 MG Tablet 1 tablet as needed Orally Once a day Unknown Calcium 600+D3 600-200 MG-UNIT Tablet 1 tablet with a meal Orally BID Unknown Celecoxib 200 MG Capsule 1 capsule with food Orally Once a day; Duration: 30 days may fill 30 days from last rx Unknown oxyCODONE-Acetaminophen 7.5-325 MG Tablet 1 tablet as needed Orally every 6 hrs; Duration: 10 days 05/25/2021 Not-Taking traZODone HCl 50 MG Tablet 1 tablet at bedtime as needed Orally Once a day; Duration: 30 day(s) Do not take Oxycodone 3-4 hours before taking Trazodone and wait 3-4 hours after to take oxycodone Not-Taking Tylenol 325 MG Tablet 1 tablet as needed Orally every 4 hrs Not-Taking oxyCODONE-Acetaminophen 7.5-325 MG Tablet 1 tablet as needed Orally every 6 hrs; Duration: 7 days 06/03/2021 Not-Taking Robaxin-750 750 MG Tablet 1 tablet Orally every 6 hrs; Duration: 30 day(s) 01/21/2020 Not-Taking fentaNYL 04/09/2013 Not-Takin xander Flexeril Not-Taking oxyCODONE-Acetaminophen 7.5-325 MG Tablet 1 tablet as needed Orally every 4-6 hrs; Duration: 7 days 05/17/2021 Not-Taking oxyCODONE HCl 10 MG Tablet as directed Orally Q4 Not-Taking Oxycodone Hydrochloride 10 MG Oral Tablet 02/21/2013 Not-Taking Cyclobenzaprine HCl 5 MG Tablet 1 tablet at bedtime as needed Orally Once a day; Duration: 30 days As needed fill on 03/14/2024 Not-Taking Cyclobenzaprine HCl 10 MG Tablet TAKE 1 TABLET BY MOUTH ONCE DAILY AT BEDTIME NEEDED; Duration: 30 Not-Taking Social History Sex Assigned At : Social History Observation Description Sex Assigned At Male Encounters Encounter Location Date Provider Diagnosis [facility] [place] [address] 03/07/2025 Cynthia Swanson Chronic pain syndrome G89.4 Assessments Encounter Date Diagnosis (ICD Code) Assessment Notes Treatment Notes Treatment Clinical Notes Section Notes 03/07/2025 Chronic pain syndrome (ICD-10 - G89.4) Patient presents today for a wound check. His incision is completely healed and intact. He is cleared from all precautions from my end. He does have some programming questions, and I will reach out to [employer] to have his settings reprogrammed. Overall he is pleased. He will continue to follow up with Dr. Estes for his routine medication visits. 03/07/2025 Other Dread Murillo am scribing for Dr. Cynthia guzman. Cynthia Murillo, personally performed the services described in this documentation, as scribed by Dread Tsai, and it is both accurate and complete. Plan Of Treatment Treatment Notes Assessment Notes Chronic pain syndrome Patient presents di cordon for a wound check. His incision is completely healed and intact. He is cleared from all precautions from my end. He does have some programming questions, and I will reach out to [employer] to have his settings reprogrammed. Overall he is pleased. He will continue to follow up with Dr. Estes for his routine medication visits. Other Lidia, Dread Tsai am scribing for Dr. Cynthia Swanson. Cynthia Murillo, personally performed the services described in this documentation, as scribed by Dread Tsai, and it is both accurate and complete. Next Appt Details Provider Name:Aria Estes, 03/25/2025 02:40:00 PM, [address] [place] [address], [phone], History and Physical Notes * HPI (History of Present Illness) Category Sub-Category Detail Notes Category Not es Pain Details Pain Location : Quality : Severity of pain at its worst : Severity of pain at its best : Severity of average pain : Severity of pain on medication : When did you last take your pain medicin e : Medication Details Do you have a lock b ox or safe place for medication away from minors and/or others? Yes Do you have any leftover pain medication building up at your house? No Do you understand that pain medication c an be addicting and can cause overdose? Yes Do you feel you can REDUCE the amount of medication you take today? No Opioid Assessment Tools Pill Count : Last Urine Drug Screen : [place] Prescription Monitoring Program : Physical Examination Category Sub-Category Detail Notes Section Note s General: Well developed, well nourished, in no acute distress. Appearing stated age sitting upright in chair. Head: Normocephalic and atraumatic. Lungs:Unlabored respiration, no audible wheezing Msk: Reproducible pain on palpation in the paraspinal area Incision clean dry healed Progress Notes * Mele HOLLAND WDOB: [birth year] (74 yo M)Acc No.[id number]:03/07/2025 Progress Notes Patient: Mele Barber W Provider: Mingo Swanson MD :1950 A ge:74 Y S ex:Male Date:03/07/2025 Address:[address] [place], [place] [id number] Pcp:RL Tomlinson Check In:01:09 PM [employer] Subjective: * Chief Complaints: * 1 month f/u [id number] * HPI: P ain Details: Pain Location : . Quality : . Severity of pain at its worst : . Severity of pain at its best : . Severity of pain on medication : . Severity of average pain : . When did you last take your pain medicine : . M edication Details: Do you have a lock box or safe place for medication away from minors and/or others? Y es. Do you have any leftover pain medication building up at your house? N o. Do you understand that pain medication can be addicting and can cause overdose? Y es. Do you feel you can REDUCE the amount of medication you take today? N o. O pioid Assessment Tools: Pill Count : . Last Urine Drug Screen : . [place] Prescription Monitoring Program : . * Medications: T akingBuprenorphine HCl 8 MG Tablet Sublingual 1 tablet under the tongue and allow to dissolve Sublingual 3 times daily , stop date 03/26/2025, Notes to Pharmacist: fill on 02/24/2025oxyCODONE-Acetaminophen 5-325 MG Tablet 0.5-1 tablet as needed Orally every 6 hrs not to exceed 1 tablet per day or 30 tablets in a diaz, stop date 03/22/2025, Notes to Pharmacist: Fill on 02/20/2025tiZANidine HCl 4MG Tablet 1 tab orally twice daily , Notes to Pharmacist: fill 30 days from last rxTaking Buprenorphine HCl 8 MG Tablet Sublingual 1 tablet under the tongue and allow to dissolve Sublingual 3 times daily , stop date 03/26/2025, Notes to Pharmacist: fill on 02/24/2025Taking oxyCODONE-Acetaminophen 5-325 MG Tablet 0.5-1 tablet as needed Orally every 6 hrs not to exceed 1 tablet per day or 30 tablets in a diaz, stop date 03/22/2025, Notes to Pharmacist: Fill on 02/20/2025Taking tiZANidine HCl 4MG Tablet 1 tab orally twice daily , Notes to Pharmacist: fill 30 days from last rxNot-TakingCyclobenzaprine HCl 10 MG Tablet TAKE 1 TABLET BY MOUTH ONCE DAILY AT BEDTIME NEEDED Cyclobenzaprine HCl 5 MG Tablet 1 tablet at bedtime as needed Orally Once a day As needed, Notes to Pharmacist: fill on 03/14/2024fentaNYL Flexeril oxyCODONE HCl 10 MG Tablet as directed Orally Q4 Oxycodone Hydrochloride 10 MG Oral Tablet oxyCODONE-Acetaminophen 7.5-325 MG Tablet 1 tablet as needed Orally every 4-6 hrs oxyCODONE-Acetaminophen 7.5-325 MG Tablet 1 tablet as needed Orally every 6 hrs oxyCODONE-Acetaminophen 7.5-325 MG Tablet 1 tablet as needed Orally every 6 hrs Robaxin-750 750 MG Tablet 1 tablet Orally every 6 hrs traZODone HCl 50 MG Tablet 1 tablet at bedtime as needed Orally Once a day , Notes to Pharmacist: Do not take Oxycodone 3-4 hours before taking Trazodone and wait 3-4 hours after to take oxycodoneTylenol 325 MG Tablet 1 tablet as needed Orally every 4 hrs Not-Taking Cyclobenzaprine HCl 10 MG Tablet TAKE 1 TABLET BY MOUTH ONCE DAILY AT BEDTIME NEEDED Not-Taking Cyclobenzaprine HCl 5 MG Tablet 1 tablet at bedtime as needed Orally Once a day As needed, Notes to Pharmacist: fill on 03/14/2024Not-Taking fentaNYL Not-Taking Flexeril Not-Taking oxyCODONE HCl 10 MG Tablet as directed Orally Q4 Not-Taking Oxycodone Hydrochloride 10 MG Oral Tablet Not-Taking oxyCODONE-Acetaminophen 7.5-325 MG Tablet 1 tablet as needed Orally every 4-6 hrs Not-Taking oxyCODONE-Acetaminophen 7.5-325 MG Tablet 1 tablet as needed Orally every 6 hrs Not-Taking oxyCODONE-Acetaminophen 7.5-325 MG Tablet 1 tablet as needed Orally every 6 hrs Not-Taking Robaxin-750 750 MG Tablet 1 tablet Orally every 6 hrs Not-Taking traZODone HCl 50 MG Tablet 1 tablet at bedtime as needed Orally Once a day , Notes to Pharmacist: Do not take Oxycodone 3-4 hours before taking Trazodone and wait 3-4 hours after to take oxycodoneNot-Taking Tylenol 325 MG Tablet 1 tablet as needed Orally every 4 hrs UnknownAdvil Liqui-Gels minis Alendronate Sodium 70 MG Tablet 1 tablet Orally every monday Baclofen 10 MG Tablet 1 tablet as needed Orally Once a day Calcium 600+D3 600-200 MG-UNIT Tablet 1 tablet with a meal Orally BID Celecoxib 200 MG Capsule 1 capsule with food Orally Once a day , Notes to Pharmacist: may fill 30 days from last rxcetirizine hydrochloride 10 MG Oral Tablet Crestor , Notes to Pharmacist: *Pick strength-form from [employer] for eRX*dexAMETHasone 2 MG Tablet Day 1-2: 4 mg, q6Day 3-4: 2 mg, q6 Day 5-6: 2 mg, q12 Orally as directed Dexilant 60 MG Capsule Delayed Release 1 capsule Orally Once a day Diclofenac Sodium 75 MG Tablet Delayed Release 1 tablet as needed Orally Twice a day , Notes to Pharmacist: Discontinue MeloxicamDigoxin 125 MCG Tablet 1 tablet Orally once day 20 ML 3 tabs Docusate Sodium 100 MG Oral Capsule DULoxetine HCl 60 MG Capsule Delayed Release Particles Take 1 capsule by mouth once daily Famciclovir 500 MG Tablet 1 tablet Orally Twice a day Fosamax Plus D 70-2800 MG-UNIT Tablet 1 tablet 30 minutes before the first food, beverage or medicine of the day with plain water Orally Gabapentin 300 MG Capsule TAKE 1 CAPSULE BY MOUTH IN THE MORNING AND 2 AT BEDTIME Glucosamine Chond Cmp Advanced hydroCHLOROthiazide 25 MG Tablet 1 tablet in the morning Orally Once a day Lisinopril 20 MG Tablet 1/2 tab Orally Once a day Loratadine 10 MG Tablet 1 tablet Orally Once a day Losartan Potassium Lysine 500 MG Tablet as directed Orally Magnesium Meloxicam 15 MG Tablet 1 tablet Orally Once a day Memantine HCl 10 MG Tablet 1 tablet Orally Twice a day Metoprolol Tartrate , Notes to Pharmacist: *Pick strength-form from [facility] for eRX*MiraLax 17 GM/SCOOP Powder as directed Orally Once a day Misc. Devices , Notes to Pharmacist: CPAPMultivitamin Namenda oxaprozin 600 MG Oral Tablet Pravastatin Sodium 40 MG Oral Tablet Probiotic rifAMPin 300 MG Capsule as directed Orally twice daily Rosuvastatin Calcium 10 MG Tablet 1 tablet Orally Once a day Sennosides-Docusate Sodium 8.6-50 MG Capsule 2 capsules at bedtime with a full glass of water as needed Orally Once a day tamsulosin , Notes to Pharmacist: *Reorder from [facility] for eRx and Interaction Alerts*Tamsulosin hydrochloride 0.4 MG Oral Capsule , Notes to Pharmacist: BIDTerbinafine , Notes to Pharmacist: dailyTerbinafine 1 % Cream 1 application Externally Once a day Xarelto 20 MG Tablet 1 tablet with food Orally Once a day Xarelto , Notes to Pharmacist: *Pick strength-form from [facility] for eRX*Unknown Advil Liqui-Gels minis Unknown Alendronate Sodium 70 MG Tablet 1 tablet Orally every monday Unknown Baclofen 10 MG Tablet 1 tablet as needed Orally Once a day Unknown Calcium 600+D3 600-200 MG-UNIT Tablet 1 tablet with a meal Orally BID Unknown Celecoxib 200 MG Capsule 1 capsule with food Orally Once a day , Notes to Pharmacist: may fill 30 days from last rxUnknown cetirizine hydrochloride 10 MG Oral Tablet Unknown Crestor , Notes to Pharmacist: *Pick strength-form from [facility] for eRX*Unknown dexAMETHasone 2 MG Tablet Day 1-2: 4 mg, q6Day 3-4: 2 mg, q6 Day 5-6: 2 mg, q12 Orally as directed Unknown Dexilant 60 MG Capsule Delayed Release 1 capsule Orally Once a day Unknown Diclofenac Sodium 75 MG Tablet Delayed Release 1 tablet as needed Orally Twice a day , Notes to Pharmacist: Discontinue MeloxicamUnknown Digoxin 125 MCG Tablet 1 tablet Orally once day 20 ML 3 tabs Unknown Docusate Sodium 100 MG Oral Capsule Unknown DULoxetine HCl 60 MG Capsule Delayed Release Particles Take 1 capsule by mouth once daily Unknown Famciclovir 500 MG Tablet 1 tablet Orally Twice a day Unknown Fosamax Plus D 70-2800 MG-UNIT Tablet 1 tablet 30 minutes before the first food, beverage or medicine of the day with plain water Orally Unknown Gabapentin 300 MG Capsule TAKE 1 CAPSULE BY MOUTH IN THE MORNING AND 2 AT BEDTIME Unknown Glucosamine Chond Cmp Advanced Unknown hydroCHLOROthiazide 25 MG Tablet 1 tablet in the morning Orally Once a day Unknown Lisinopril 20 MG Tablet 1/2 tab Orally Once a day Unknown Loratadine 10 MG Tablet 1 tablet Orally Once a day Unknown Losartan Potassium Unknown Lysine 500 MG Tablet as directed Orally Unknown Magnesium Unknown Meloxicam 15 MG Tablet 1 tablet Orally Once a day Unknown Memantine HCl 10 MG Tablet 1 tablet Orally Twice a day Unknown Metoprolol Tartrate , Notes to Pharmacist: *Pick strength-form from [facility] for eRX*Unknown MiraLax 17 GM/SCOOP Powder as directed Orally Once a day Unknown Misc. Devices , Notes to Pharmacist: CPAPUnknown Multivitamin Unknown Namenda Unknown oxaprozin 600 MG Oral Tablet Unknown Pravastatin Sodium 40 MG Oral Tablet Unknown Probiotic Unknown rifAMPin 300 MG Capsule as directed Orally twice daily Unknown Rosuvastatin Calcium 10 MG Tablet 1 tablet Orally Once a day Unknown Sennosides-Docusate Sodium 8.6- 50 MG Capsule 2 capsules at bedtime with a full glass of water as needed Orally Once a day Unknown tamsulosin , Notes to Pharmacist: *Reorder from [facility] for eRx and Interaction Alerts*Unknown Tamsulosin hydrochloride 0.4 MG Oral Capsule , Notes to Pharmacist: BIDUnknown Terbinafine , Notes to Pharmacist: dailyUnknown Terbinafine 1 % Cream 1 application Externally Once a day Unknown Xarelto 20 MG Tablet 1 tablet with food Orally Once a day Unknown Xarelto , Notes to Pharmacist: *Pick strength-form from [facility] for eRX* Objective: * Physical Examination: G eneral: Well developed, well nourished, in no acute distress. Appearing stated age sitting upright in chair. Head: Normocephalic and atraumatic. Lungs:Unlabored respiration, no audible wheezing Msk: Reproducible pain on palpation in the paraspinal area Incision clean dry healed. Assessment: * Assessment: 1. C hronic pain syndrome - G89.4 (Primary) Plan: * Treatment: 2. O thers Notes: Dread Murillo am scribing for Dr. Cynthia Swanson. Cynthia Murillo, personally performed the services described in this documentation, as scribed by Dread Tsai, and it is both accurate and complete. Billing Information: * Procedure Codes: Care Plan Details* * Electronic signature of Dora Swanson MD on 03/08/2025 at 07:42 PM [employer] Sign off status: Pending * Provider: Mingo Swanson MD Date: 05/07/2024 Generated for Peewee orona/Demarcus/Anselmo on: 05/08/2024 07:42 PM [employer]
--- OUTSIDE RECORDS SUMMARY | 2025-03-07 23:59 | XMS_ITS | Continuity of Care Document ---
Author Organization [facility] Address [address] [place] [address], [place] [address]- Support Name Relationship Address Phone MIKE HOLLAND Personal Relationship Unknown Unavailable RONALD HOLLAND spouse Unknown Unavailable MIKE HOLLAND Personal Relationship Unknown U navailable RONALD HOLLAND spouse Unknown Unavailable RONALD HOLLAND spouse Unknown Unavailable Encounter [facility] Financial Number [id number] Date(s): 03/07/25 - 03/07/[address] [place] [address]- [place] Discharge Disposition: Home:Self-Care Attending Physician: Cynthia Swanson MD Admitting Physician: Cynthia Swanson MD Encounter Type: Outpatient Allergies, Adverse Reactions, Alerts Substance Criticality Severity Reaction Reaction Severity Status acyclovir muscle/bone ach es brain fog Dizziness Active benzodiazepines Adverse drug reaction Active Dilaudid CODE BLUE Active Augmentin FLU LIKE SYMPTOMS Ac tive adhesive tape Blister Active Immunizations Given and Recorded Vaccine Date Status Refusal Reason tetanus/diphtheria/pertussis, acel 02/12/22 Given influenza virus vaccine, inactivated 01/16/20 Give n tetanus-diphtheria toxoids 11/22/14 Given Medications albuterol CFC free 90 mcg/inh inhalation aerosol 2 PUFF, INH, Q6H, PRN for Shortness of Breath or Wheezing Start Date: 01/30/25 Status: Ordered Repeat number: 1 allopurinol 100 mg oral tablet 200 MG, = 2 TAB, PO, Daily, Tab Start Date: 01/30/25 Status: Ordered Repeat number: 1 buprenorphine 8 mg sublingual tablet 8 MG, = 1 TAB, SL, TID Start Date: 01/30/25 Status: Ordered Repeat number: 1 Calcium 600+D 600 mg-5 mcg (200 intl units) oral tablet 1 TAB, PO, BID Start Date: 01/18/21 Status: Ordered Repeat number: 1 CeleBREX 100 mg oral capsule 100 MG, = 1 CAP, PO, BID, Cap Start Date: 01/30/25 Status: Ordered Repeat number: 1 Crestor 10 mg oral tablet 10 MG, = 1 TAB, PO, QHS, Tab Start Date: 10/16/18 Status: Ordered Repeat number: 1 donepezil 10 mg oral tablet 10 MG, = 1 TAB, PO, QHS, Tab Start Date: 01/30/25 Status: Ordered Repeat number: 1 DULoxetine 60 mg oral delayed release capsule 60 MG, = 1 CAP, PO, QAM Start Date: 01/30/25 Status: Ordered Repeat number: 1 ferrous sulfate 325 mg (65 mg elemental iron) oral enteric coated tablet 325 MG, = 1 TAB, PO, Daily, Tab Start Date: 01/30/25 Status: Ordered Repeat number: 1 Flomax 0.4 mg oral capsule 0.4 MG, = 1 CAP, PO, BID Start Date: 03/06/13 Status: Ordered Repeat number: 1 Florastor 250 mg oral capsule 250 MG, = 1 CAP, PO, BID, PRN for for loose stool, # 10 CAP, Cap Start Date: 01/30/25 Status: Ordered Quantity: 10.0 Unit: CAP Repeat number: 1 Fosamax 70 mg oral tablet 70 MG, = 1 TAB, PO, Fri, in morning Start Date: 03/06/13 Status: Ordered Repeat number: 1 furosemide 40 mg oral tablet 40 MG, = 1 TAB, PO, QAM Start Date: 01/30/25 Status: Ordered Repeat number: 1 indapamide 2.5 mg oral tablet 1.25 MG, = 0.5 TAB, PO, QAM, Tab Start Date: 01/30/25 Status: Ordered Repeat number: 1 losartan 50 mg oral tablet 50 MG, = 1 TAB, PO, QAM, Tab Start Date: 01/30/25 Status: Ordered Repeat number: 1 Mag-Ox 400 oral tablet 400 MG, = 1 TAB, PO, BID Start Date: 01/30/25 Status: Ordered Repeat number: 1 Metamucil 400 mg oral capsule 800 MG, = 2 CAP, PO, BID Start Date: 01/30/25 Status: Ordered Repeat number: 1 metoprolol succinate 25 mg oral tablet, extended release 25 MG, = 1 TAB, PO, QAM Start Date: 01/30/25 Status: Ordered Repeat number: 1 Namenda 10 mg oral tablet 10 MG, = 1 TAB, PO, BID Start Date: 01/18/21 Status: Ordered Repeat number: 1 Narcan 4 mg/0.1 mL nasal spray 4 MG, = 1 SPRAY, Once Start Date: 01/30/25 Status: Ordered Repeat number: 1 pantoprazole 40 mg oral enteric coated tablet 40 MG, = 1 TAB, PO, QAMAC, EC tablet Start Date: 01/30/25 Status: Ordered Repeat number: 1 penicillin V potassium 500 mg oral tablet 500 MG, = 1 TAB, PO, BID Start Date: 01/30/25 Status: Ordered Repeat number: 1 potassium chloride 20 mEq oral tablet, extended release 20 MEQ, = 1 TAB, PO, QAM Start Date: 01/30/25 Status: Ordered Repeat number: 1 tiZANidine 4 mg oral tablet 4 MG, = 1 TAB, PO, TID, PRN for Muscle Spasms, Tab Start Date: 01/30/25 Status: Ordered Repeat number: 1 traMADol 50 mg oral tablet 50 MG, = 1 TAB, PO, Daily, PRN for pain Start Date: 01/30/25 Status: Ordered Repeat number: 1 traZODone 50 mg oral tablet 50 MG, = 1 TAB, PO, QHS, PRN for Sleep Start Date: 01/30/25 Status: Ordered Repeat number: 1 Tylenol 500 mg oral tablet 500 MG, = 1 TAB, PO, Q6H, PRN for Pain or Fever, Tab Start Date: 01/30/25 Status: Ordered Repeat number: 1 Vitamin C 500 mg oral tablet 500 MG, = 1 TAB, PO, BID, Tab Start Date: 01/30/25 Status: Ordered Repeat number: 1 Xarelto 20 mg oral tablet 20 MG, = 1 TAB, PO, QPMCC, Tab Start Date: 10/16/18 Status: Ordered Repeat number: 1 Problem List Condition Confirmation Course Effective Dates Status Health Status Informant Arthritis Confirmed Active patient Atrial fibrillation 1 Confirmed Active BIPAP - Biphasic pressure airway support protocol Confirmed Active Chronic pain syndrome Confirmed Active patient Hypercholesterolemia Confirmed Active Hypertension Confirmed Active patient Implantation of patient-activated cardiac event recorder Confirmed Active patient Lumbar pain Confirmed Active patient Osteopetrosis Confirmed Active Seasonal allergy Confirmed Active patie nt Short term memory loss Confirmed Active patient Sleep apnea Confirmed Active 1See rod puller Dr Olson in [place]. Last seen 06/2019 Procedures Procedure Date Related Diagnosis Body Site Status Implantation of permanent sp inal cord stimulator generator and electrode 1 02/06/25 Completed S/P TURP (transurethral rese ction of prostate) 12/2024 Completed ESWL - Extracorporeal shockw ave lithotripsy for renal calculus 05/2024 C ompleted S/P TURP (transurethral rese ction of prostate) 2024 Completed Myringotomy 2 03/01/22 Completed Debridement and irrigation of joint 3 09/17/21 Completed Revision of knee arthroplasty 4 09/06/21 Completed Arthroscopy of knee 5 06/16/21 Com pleted Total knee arthroplasty 6 04/28/21 Completed Debridement of hand 7 01/18/21 Com pleted Laminectomy 8 01/15/20 Completed Insertion of spinal neurostimulator 10/19/18 Completed Colonoscopy 2015 Completed Open reduction 9 12/04/14 Complete d Kyphoplasty of fracture of l umbar spine using computed tomography (CT) guidance 10 03/06/13 Completed H/O heart artery stent 2009 Completed History of umbilical hernia repair 1997 Completed Arthroscopy of knee 13 Co mpleted Bilateral inguinal hernia Completed BT - Blood transfusion 14 Completed Cholecystectomy Completed Coronary angiogram Comple al Coronary angioplasty 15 C ompleted Ear 16, 17 Completed Implantation of patient-acti vated cardiac event recorder Completed Incisional hernia 18 Comp leted Laminectomy 19 Completed Lithotripsy Completed 1Spinal cord stimulator generator change 2right 3left TKA 4Left tibial component 5left knee manipulation and diagnostic examination of knee 6left 7right index finger and pinning 8L3-5 9FOR SPINAL PAIN 10Lumbar 1 [id number] or 2012 per pt 12x 2 and 2013 13MMT LEFT KNEE 14X 3 per pt 15stent placement 16reconstruction surgery on right ear x2 [id number] and 2004 18repair past cholecystectomy 19L54 and L5 Social History Social History Type Response Smoking Status Former tobacco user entered on: 01/30/25 Sex Male Sex Representation Male (finding) Implantable Device List Procedure Provider Procedure Date Device Type Site Unknown Unknown 02/06/25 Unknown Unknown Device Identifier Serial Number Lot or Batch Number Manufacturing Date Expiration Date Distinct Identification Code MRI Safety Implantable Status Assigning Authority Unknown [id number] Unknown Unknown 11/25/26 Unknown Unknown Active Unkn own Unknown [id number] Unknown Unknown 04/08/26 Unknown Unknown Active Un known Unknown [id number] Unknown 12/05/26 Unknown Unknown Active Unkno wn Procedure Provider Procedure Date Device Type Site Unknown Unknown 03/01/22 Unknown Unknown Device Identifier Serial Number Lot or Batch Number Manufacturing Date Expiration Date Distinct Identification Code MRI Safety Implantable Status Assigning Authority Unknown Unknown [id number] Unknown 12/17/29 Unknown Unknown Active Unknown Procedure Provider Procedure Date Device Type Site Unknown Unknown 09/17/21 Unknown Unknown Device Identifier Serial Number Lot or Batch Number Manufacturing Date Expiration Date Distinct Identification Code MRI Safety Implantable Status Assigning Authority Unknown Unknown [id number] Unknown 05/17/31 Unknown Unknown Active Unknown Procedure Provider Procedure Date Device Type Site Unknown Unknown 09/06/21 Unknown Unknown Device Identifier Serial Number Lot or Batch Number Manufacturing Date Expiration Date Distinct Identification Code MRI Safety Implantable Status Assigning Authority Unknown Unknown [id number] Unknown 10/21/22 Unknown Unknown Active Unknown Unknown Unknown [id number] Unknown 02/08/26 Unknown Unknown Active Unknown Unknown Unknown [id number] 27 Unknown 02/06/31 Unknown Unknown Active Unknown Unknown Unknown [id number] Unknown 07/23/24 Unknown Unknown Active Unknown Unknown Unknown [id number] 25 Unknown 08/22/22 Unknown Unknown Active Unknown Procedure Provider Procedure Date Device Type Site Unknown Unknown 04/28/21 Unknown Unknown Device Identifier Serial Number Lot or Batch Number Manufacturing Date Expiration Date Distinct Identification Code MRI Safety Implantable Status Assigning Authority Unknown Unknown [id number] Unknown 07/22/22 Unknown Unknown Active Unknown Unknown Unknown [id number] Unknown 07/22/22 Unknown Unknown Active Unknown Unknown Unknown [id number] Unknown 06/07/26 Unknown Unknown Active Unknown Unknown Unknown [id number] Unknown 01/27/31 Unknown Unknown Active Unknown Unknown Unknown [id number] 29 Unknown 01/04/31 Unknown Unknown Active Unknown Unknown Unknown [id number] 19 Unknown 10/13/29 Unknown Unknown Active Unknown Procedure Provider Procedure Date Device Type Site Unknown Unknown 01/18/21 Unknown Unknown Device Identifier Serial Number Lot or Batch Number Manufacturing Date Expiration Date Distinct Identification Code MRI Safety Implantable Status Assigning Authority Unknown Unknown [id number] Unknown 06/08/28 Unknown Unknown Active Unknown Procedure Provider Procedure Date Device Type Site Unknown Unknown 10/19/18 Unknown Unknown Device Identifier Serial Number Lot or Batch Number Manufacturing Date Expiration Date Distinct Identification Code MRI Safety Implantable Status Assigning Authority Unknown ifw647. 1 Unknown Unknown 09/10/20 Unknown Unknown Active Unknown Unknown [id number] Unknown Unknown 07/02/20 Unknown Unknown Active Unknown Patient Care team information Care Team Related Persons Name: RONALD HOLLAND Insurance Providers Guarantor name: MIKE EMILY SKYLER [facility] Information #: 2 Payer: NA Member Number: [id number] Policy Number: NA Group Number: NA Payer Identifier: NA Health Plan Information #: 1 Payer: MEDICARE A AND B Member Number: [id number] Policy Number: NA Group Number: NA Payer Identifier: NA
[2025-03-08 19:40] VITALS: BP 138/86; PULSE 66; RESP 18; TEMP 36.6; O2SAT 93; BMI 32.7
--- OUTSIDE RECORDS SUMMARY | 2025-03-08 19:42 | XMS_ITS | Data Portability ---
Author Organization [facility] L[facility]pez [facility] Hospital[facility] Address [address] [address] Care Team Providers Care Spice Grinder Name Role Phone IVETTE CORDOBA Primary Care Provider Unavailabl e Assessment No assessment recorded. Plan of Treatment Reminders Order Date Submit Date Provider Last Modified By Organization Details Last Modified Time Details Appointments None recorded. Lab urinalysis, complete 2024 025 [facility], [address], [place], [address], 13:38:27 culture, urine 2024 025 [facility] [facility], [address] [place] [address], [address] [place], [address], 00:57:19 iron + TIBC + ferritin, serum 2024 025 [employer] [facility], [facility] [address], [place], [address], 05:54:02 CBC 2024 025 [facility], [address], [place], [address], 14:44:13 CMP, serum or plasma 2024 025 [facility], [address], [address], [place], [address], 5 15:20:28 iron + TIBC + ferritin, serum 2024 025 [employer] [facility], [address], [place], [address], 5 06:49:08 CBC 2024 025 [facility], [address], [place], [address], 15:51:49 fecal occult blood, immunoassay , stool 2024 025 [facility] ([facility]), [address] [place], [address], 12:06:39 CBC 2024 025 [facility], [address], [place], [address], 16:47:23 iron + TIBC + ferritin, serum 2024 025 [facility], [address], [place], [address], 5 03:48:06 vitamin B12, serum 2024 025 [facility], [address], [place], [address], 5 03:48:09 folate, serum 2024 025 [employer] [facility], [address], [place], [address], 5 03:48:08 Referral physical therapist referral 2024 025 [place] [address] 2 [facility], [address] [facility], [address], [place], [address], 10:33:21 physical therapist referral 2024 025 [place] [address] 2 [facility], [address], [place], [address], 10:33:28 physical therapist referral [address], [address], [place], [address], 15:24:00 physical therapist referral [address], [address], [place], [address], 13:26:02 physical therapist referral - PT specialists . 2024 [facility], [address] [place] [address], [address], 14:04:37 Procedures None recorded. Surgeries None recorded. Imaging polysomnogr am, titration study 2024 [facility], [address] [place], [address], 06:13:38 XR, chest, 2 view [address] ([facility]), [address] [place], [address], 13:48:16 Medication Orders Bactrim DS 800 mg-160 mg tablet 2024 [facility] [address], [address] [place], [address], 05:01:37 triamcinolo ne acetonide 0.1 % topical cream 2024 025 [facility] [address], [address] [place], [address], 14:35:17 Patient TargetsNo targets recorded. Patient InstructionsNo instructions recorded. Reason for Referral Physical Therapist Referral for Abnormal gait PT specialists. Referring Physician: Ivette Cordoba [facility], Encounter Date: 09/19/2024 Physical Therapist Referral for Pain of knee region Referring Physician: Ivette Cordoba [facility], Encounter Date: 12/26/2024 Physical Therapist Referral for Abnormal gait Referring Physician: Ivette Cordoba [facility], Encounter Date: 12/26/2024 Physical Therapist Referral for Pain of left knee joint Referring Physician: Ivette Cordoba [facility], Encounter Date: 02/21/2025 Physical Therapist Referral for Impairment of balance Referring Physician: Ivette Cordoba [facility], Encounter Date: 02/21/2025 Results Created Date Observation Date Name Description Value Unit Range Abnormal Flag Note LastModifiedBy Organization Detail LastModifiedTime 10/17/1910/16/2024 CBC WBC 7.3 x10 4.5-10 .5 Not Available [facility] [address] [facility] [address], [place], [address], 10/16/2024 15:51:49 10/17/1910/16/2024 CBC RBC 5.31 x10 4.30-5 .90 Not Available [facility] [address], [place], [address], 10/16/2024 15:51:49 10/17/1910/16/2024 CBC HGB 14.1 g/dL 13.5-1 8.0 Not Available [facility] [address] [facility], [place], [address], 10/16/2024 15:51:49 10/17/19 25 10/16/2024 CBC HCT 45.2 % 35.0-6 0.0 Not Available [facility] [address] [facility] [address], [place], [address], 10/16/2024 15:51:49 10/17/19 25 10/16/2024 CBC MCV 85.2 fL 80.0-9 9.9 Not Available [facility] [address] [facility] [address], [place], [address], 10/16/2024 15:51:49 10/17/19 25 10/16/2024 CBC MCH 26.6 pg 27.0-3 2.0 low Not Available [facility] [address] [facility] [address], [place], [address], 10/16/2024 15:51:49 10/17/19 25 10/16/2024 CBC MCHC 31.2 g/dL 32.0-3 6.0 low Not Available [facility] [address] [facility], [place], [address], 10/16/2024 15:51:49 10/17/19 25 10/16/2024 CBC RDW 27.1 % 11.5-1 4.5 panic high Not Available [facility] [address], [place], [address], 10/16/2024 15:51:49 10/17/19 25 10/16/2024 CBC plt 208.8 x10 150.0- 451.0 Not Available [facility] [address] [facility] [address], [place], [address], 10/16/2024 15:51:49 10/17/19 25 10/16/2024 CBC lymphocytes % 22.5 % 20.0-5 0.0 Not Available [facility] [address] [facility] [address], [place], [address], 10/16/2024 15:51:49 10/17/19 25 10/16/2024 CBC granulcytes % 61.1 % 30.0-7 0.0 Not Available [facility] [address] [facility] [address], [place], [address], 10/16/2024 15:51:49 10/17/19 25 10/16/2024 CBC monocytes % 12.6 % 2.0-16 .0 Not Available [facility] [address] [facility] [address] [facility], [place], [address], 10/16/2024 15:51:49 10/17/19 25 10/16/2024 CBC granulcytes# 4.5 x10 Not Alena ilable [facility] [address] [facility] [address] [facility], [place], [address], 10/16/2024 15:51:49 10/17/19 25 10/16/2024 CBC lymphocytes # 1.7 x10 Not Available [facility] [address] [facility] [facility], [place], [address], 10/16/2024 15:51:49 10/17/19 25 10/16/2024 CBC monocytes # 0.9 x10 Not Avai [facility]able [facility] [address] [facility] [address] [facility], [place], [address], 10/16/2024 15:51:49 08/09/19 25 08/08/2024 CBC WBC 8.0 x10 4.5-10 .5 Not Available [facility] [address] [facility], [place], [address], 08/08/2024 16:47:22 08/09/19 25 08/08/2024 CBC RBC 4.65 x10 4.30-5 .90 Not Available [facility] [address], [place], [address], 08/08/2024 16:47:22 08/09/19 25 08/08/2024 CBC HGB 10.6 g/dL 13.5-1 8.0 low Not Available [facility] [address] [facility] [address], [place], [address], 08/08/2024 16:47:22 08/09/19 25 08/08/2024 CBC HCT 32.9 % 35.0-6 0.0 low Not Available [facility] [address] [facility] [address], [place], [address], 08/08/2024 16:47:22 08/09/19 25 08/08/2024 CBC MCV 70.7 fL 80.0-9 9.9 low Not Available [facility] [address] [facility] [address], [place], [address], 08/08/2024 16:47:22 08/09/19 25 08/08/2024 CBC MCH 22.8 pg 27.0-3 2.0 low Not Available [facility] [address] [facility] [address], [place], [address], 08/08/2024 16:47:22 08/09/19 25 08/08/2024 CBC MCHC 32.2 g/dL 32.0-3 6.0 Not Available [facility] [address] [facility] [address], [place], [address], 08/08/2024 16:47:22 08/09/19 25 08/08/2024 CBC RDW 21.4 % 11.5-1 4.5 high Not Available [facility] [address] [facility] [address], [place], [address], 08/08/2024 16:47:22 08/09/19 25 08/08/2024 CBC plt 247.2 x10 150.0- 451.0 Not Available [facility] [address] [facility], [place], [address], 08/08/2024 16:47:22 08/09/19 25 08/08/2024 CBC lymphocytes % 26.5 % 20.0-5 0.0 Not Available [facility] [address] [facility], [place], [address], 08/08/2024 16:47:22 08/09/19 25 08/08/2024 CBC granulcytes % 55.0 % 30.0-7 0.0 Not Available [facility] [address], [place], [address], 08/08/2024 16:47:22 08/09/19 25 08/08/2024 CBC monocytes % 12.3 % 2.0-16 .0 Not Available [facility] [address] [facility], [place], [address], 08/08/2024 16:47:22 08/09/19 25 08/08/2024 CBC granulcytes# 4.4 x10 Not Alena ilable [facility] [address] [facility] [address], [place], [address], 08/08/2024 16:47:22 08/09/19 25 08/08/2024 CBC lymphocytes # 2.1 x10 Not Available [facility] [address] [facility], [place], [address], 08/08/2024 16:47:22 08/09/19 25 08/08/2024 CBC monocytes # 1.0 x10 Not Avai lable [facility] [address] [facility], [place], [address], 08/08/2024 16:47:22 08/09/19 25 08/09/2024 IRON, TIBC AND ALLAN TIN PANEL iron, total 20 mcg/d L 50-180 low Not Available [address], [address], 08/09/2024 03:48:06 08/09/1908/09/2024 IRON, TIBC AND ALLAN TIN PANEL iron binding capacity 437 mcg/d L_(ca lc) 250-42 5 high Not Available [address], [address], 08/09/2024 03:48:06 08/09/1908/09/2024 IRON, TIBC AND ALLAN TIN PANEL % saturation 5 %_(ca lc) 20-48 low Not Available [address], [address], 08/09/2024 03:48:06 08/09/1908/09/2024 IRON, TIBC AND ALLAN TIN PANEL ferritin 24 NG/mL 24-380 normal Not Available [address], [address], 08/09/2024 03:48:06 08/09/1908/09/2024 FOLAT E, SERUM folate, serum 14.1 NG/mL normal Refer ence Range Low: <3.4 Borde rline : 3.4-5 .4 Chary l: >5.4 Not Available [address], [address], 08/09/2024 03:48:08 08/09/1908/09/2024 VITAM IN B12 vitamin B12 395 pg/mL 200-11 00 normal Pleas e Note: Altho ugh the refer ence range for vitam in B12 is 200-1 100 pg/mL , it has been repor al that betwe en 5 and 10% of patie nts with value s betwe en 200 and 400 pg/mL may exper ience neuro psych iatri c and hemat ologi c abnor malit ies due to occul t B12 defic iency ; less than 1% of patie nts with value s above 400 pg/mL will have sympt oms. Not Available [facility] [address] [place], [address], 08/09/2024 03:48:09 08/12/1908/11/2024 fecal occul t blood , immun oassa y, stool iFOB negati ve Not Available [facility] ([facility]) [address] [place], [address], 08/08/2024 16:15:49 09/18/1909/17/2024 CBC WBC 6.5 x10 4.5-10 .5 Not Available [facility] [address], [address], 09/17/2024 12:47:49 09/18/19 25 09/17/2024 CBC RBC 5.08 x10 4.30-5 .90 Not Available [facility] [address], [address], 09/17/2024 12:47:49 09/18/19 25 09/17/2024 CBC HGB 12.4 g/dL 13.5-1 8.0 low Not Available [facility] [address], [address], 09/17/2024 12:47:49 09/18/1909/17/2024 CBC HCT 40.9 % 35.0-6 0.0 Not Available [facility] [address], [address], 09/17/2024 12:47:49 09/18/19 25 09/17/2024 CBC MCV 80.5 fL 80.0-9 9.9 Not Available [facility] [address] [facility] [address], [address], 09/17/2024 12:47:49 09/18/1909/17/2024 CBC MCH 24.4 pg 27.0-3 2.0 low Not Available [facility] [address] [facility], [place], [address], 09/17/2024 12:47:49 09/18/1909/17/2024 CBC MCHC 30.2 g/dL 32.0-3 6.0 low Not Available [facility] [address] [facility], [place], [address], 09/17/2024 12:47:49 09/18/1909/17/2024 CBC RDW 31.8 % 11.5-1 4.5 high Not Available [facility] [address] [address], [place], [address], 09/17/2024 12:47:49 09/18/1909/17/2024 CBC plt 211.5 x10 150.0- 451.0 Not Available [facility] [address] [address], [place], [address], 09/17/2024 12:47:49 09/18/1909/17/2024 CBC lymphocytes % 30.9 % 20.0-5 0.0 Not Available [facility] [address] [address], [place], [address], 09/17/2024 12:47:49 09/18/1909/17/2024 CBC granulcytes % 49.2 % 30.0-7 0.0 Not Available [facility] [address] [address], [place], [address], 09/17/2024 12:47:49 09/18/1909/17/2024 CBC monocytes % 13.6 % 2.0-16 .0 Not Available [facility] [address] [facility] [address], [place], [address], 09/17/2024 12:47:49 09/18/1909/17/2024 CBC granulcytes# 3.2 x10 Not Alena [facility]able [facility] [address] [facility] [address], [place], [address], 09/17/2024 12:47:49 09/18/1909/17/2024 CBC lymphocytes # 2.0 x10 Not Available [facility] [address] [facility] [address], [place], [address], 09/17/2024 12:47:49 09/18/1909/17/2024 CBC monocytes # 0.9 x10 Not Avai lable [facility] [address] [address], [place], [address], 09/17/2024 12:47:49 09/18/1909/17/2024 CMP (MALE ) glucose 117.0 mg/dL 60.0-9 9.0 high Not Available [facility] [address] [address], [place], [address], 09/17/2024 14:58:52 09/18/1909/17/2024 CMP (MALE ) BUN (blood urea nitrogen) 25.0 mg/dL 10.0-2 6.0 Not Available [facility] [address] [address], [place], [address], 09/17/2024 14:58:52 09/18/1909/17/2024 CMP (MALE ) creatinine (serum) 1.2 mg/dL 0.4-1. 5 Not Available [facility] [address] [address], [place], [address], 09/17/2024 14:58:52 09/18/1915 0909/17/2024 CMP (MALE ) BUN/creatini ne ratio 20.83 ratio Not Available [facility] [address] [facility] [address], [place], [address], 09/17/2024 14:58:52 09/18/19 25 09/17/2024 CMP (MALE ) eGFR calculated 63.3 Not Available [facility] [address] [facility] [address], [place], [address], 09/17/2024 14:58:52 09/18/19 25 09/17/2024 CMP (MALE ) total protein 7.1 g/dL 6.0-8. 5 Not Available [facility] [address] [facility] 1, [place], [address], 09/17/2024 14:58:52 09/18/19 25 09/17/2024 CMP (MALE ) total bilirubin 0.6 mg/dL 0.2-1. 3 Not Available [facility] [address] [facility] [address], [place], [address], 09/17/2024 14:58:52 09/18/19 25 09/17/2024 CMP (MALE ) albumin 4.2 g/dL 3.5-5. 5 Not Available [facility] [address] [facility] 1, [place], [address], 09/17/2024 14:58:52 09/18/19 25 09/17/2024 CMP (MALE ) globulin 2.9 calc Not Available [facility] [address] [facility] 1, [place], [address], 09/17/2024 14:58:52 09/18/19 25 09/17/2024 CMP (MALE ) AST (SGOT) 28.0 U/L 0.0-46 .0 Not Available [facility] [address] [facility] 1, [place], [address], 09/17/2024 14:58:52 09/18/19 25 09/17/2024 CMP (MALE ) altv (SGPT) 20.0 U/L 13.0-6 9.0 normal Not Available [facility] [address] [facility] [address], [place], [address], 09/17/2024 14:58:52 09/18/19 25 09/17/2024 CMP (MALE ) A/G ratio 1.4 ratio Not Available [facility] [address] [facility] [address], [place], [address], 09/17/2024 14:58:52 09/18/19 25 09/17/2024 CMP (MALE ) ALP phos 84.0 U/L 30.0-1 40.0 normal Not Available [facility] [address] [facility] 1, [place], [address], 09/17/2024 14:58:52 09/18/19 25 09/17/2024 CMP (MALE ) calcium 9.0 mg/dL 8.4-10 .5 Not Available [facility] [address] [facility] 1, [place], [address], 09/17/2024 14:58:52 09/18/19 25 09/17/2024 CMP (MALE ) sodium 139.0 mmol/ L 136.0- 145.0 Not Available [facility] [address] [facility] 1, [place], [address], 09/17/2024 14:58:52 09/18/19 25 09/17/2024 CMP (MALE ) potassium 4.2 mmol/ L 3.5-5. 1 Not Available [facility] [address] [facility] 1, [place], [address], 09/17/2024 14:58:52 09/18/19 25 09/17/2024 CMP (MALE ) chloride 104.0 mmol/ L 98.0-1 10.0 normal Not Available [facility] [address] [facility] [address], [place], [address], 09/17/2024 14:58:52 09/18/19 25 09/17/2024 CMP (MALE ) C02 31.0 mmol/ L 22.0-3 1.0 Not Available [facility] [address] [facility] [address], [place], [address], 09/17/2024 14:58:52 09/18/19 25 09/17/2024 CMP (MALE ) anion gap 4.0 calc Not Available [facility] [address] [facility] [address], [place], [address], 09/17/2024 14:58:52 09/18/19 25 09/17/2024 CMP (MALE ) osmolality 292.2 calc Not Available [facility] [address] [facility] [address], [place], [address], 09/17/2024 14:58:52 09/18/1909/18/2024 IRON AND TOTAL IRON JOAN NG CAPAC ITY iron, total 91 mcg/d L 50-180 normal Not Available [facility] [address] [address] [place], [address], 09/18/2024 05:27:39 09/18/1909/18/2024 IRON AND TOTAL IRON JOAN NG CAPAC ITY iron binding capacity 314 mcg/d L_(ca lc) 250-42 5 normal Not Available [facility] [address] [address] [place], [address], 09/18/2024 05:27:39 09/18/19 25 09/18/2024 IRON AND TOTAL IRON JOAN NG CAPAC ITY % saturation 29 %_(ca lc) 20-48 normal Not Available [facility] [address] [place], [address], 09/18/2024 05:27:39 09/18/19 25 09/18/2024 ALLAN TIN ferritin 290 NG/mL 24-380 normal Not Available [address], [address], 09/18/2024 05:27:39 10/17/19 25 10/17/2024 IRON, TIBC AND ALLAN TIN PANEL iron, total 62 mcg/d L 50-180 normal Not Available [address], [address], 10/17/2024 06:49:08 10/17/19 25 10/17/2024 IRON, TIBC AND ALLAN TIN PANEL iron binding capacity 335 mcg/d L_(ca lc) 250-42 5 normal Not Available [address], [address], 10/17/2024 06:49:08 10/17/19 25 10/17/2024 IRON, TIBC AND ALLAN TIN PANEL % saturation 19 %_(ca lc) 20-48 low Not Available [address], [address], 10/17/2024 06:49:08 10/17/19 25 10/17/2024 IRON, TIBC AND ALLAN TIN PANEL ferritin 146 NG/mL 24-380 normal Not Available [address], [address], 10/17/2024 06:49:08 02/22/20 25 02/21/2025 URINA LYSIS WITH MICRO color YELLOW Not Available [facility] [address] [facility] [address], [place], [address], 02/21/2025 13:38:26 02/22/20 25 02/21/2025 URINA LYSIS WITH MICRO clarity SLIGHT LY CLOUDY abnormal Not Available [facility] [address] [facility] [address], [place], [address], 02/21/2025 13:38:26 02/22/2002/21/2025 URINA LYSIS WITH MICRO glu NEGATI VE Not Available [facility] [address], [place], [address], 02/21/2025 13:38:26 02/22/2002/21/2025 URINA LYSIS WITH MICRO bili NEGATI VE Not Available [facility] [address], [place], [address], 02/21/2025 13:38:26 02/22/2002/21/2025 URINA LYSIS WITH MICRO ket NEGATI VE Not Available [facility] [address], [place], [address], 02/21/2025 13:38:26 02/22/20 25 02/21/2025 URINA LYSIS WITH MICRO S.g 1.020 1.005- 1.025 Not Available [facility] [address], [place], [address], 02/21/2025 13:38:26 02/22/20 25 02/21/2025 URINA LYSIS WITH MICRO pH 5.5 5.0-7. 0 Not Available [facility] [address], [place], [address], 02/21/2025 13:38:26 02/22/20 25 02/21/2025 URINA LYSIS WITH MICRO pro NEGATI VE Not Available [facility] [address], [place], [address], 02/21/2025 13:38:26 02/22/20 25 02/21/2025 URINA LYSIS WITH MICRO uro 0.2 E.U./D L Not Available [facility] [address], [place], [address], 02/21/2025 13:38:26 02/22/2002/21/2025 URINA LYSIS WITH MICRO nit NEGATI VE Not Available [facility] [address], [place], [address], 02/21/2025 13:38:26 02/22/2002/21/2025 URINA LYSIS WITH MICRO blo 3+ abnormal Not Available [facility] [address], [place], [address], 02/21/2025 13:38:26 02/22/2002/21/2025 URINA LYSIS WITH MICRO jasmin 1+ abnormal Not Available [facility] [address] [facility], [place], [address], 02/21/2025 13:38:26 02/22/2002/21/2025 URINA LYSIS WITH MICRO WBC 15-18 abnormal Not Available [facility] [address] [facility], [place], [address], 02/21/2025 13:38:26 02/22/20 25 02/21/2025 URINA LYSIS WITH MICRO RBC 60-80 abnormal Not Available [facility] [address] [facility] [address], [place], [address], 02/21/2025 13:38:26 02/22/20 25 02/21/2025 URINA LYSIS WITH MICRO epi cells 0-1 Not Available [facility] [address] [facility] [address], [place], [address], 02/21/2025 13:38:26 02/22/20 25 02/21/2025 URINA LYSIS WITH MICRO bacteria NEGATI VE Not Available [facility] [address] [facility] [address], [place], [address], 02/21/2025 13:38:26 02/22/2002/21/2025 URINA LYSIS WITH MICRO other NG Not Available [facility] [address], [place], [address], 02/21/2025 13:38:26 02/22/2002/21/2025 CBC WBC 7.1 x10 4.5-10 .5 Not Available [facility] [address], [place], [address], 02/21/2025 14:44:13 02/22/2002/21/2025 CBC RBC 4.84 x10 4.30-5 .90 Not Available [facility] [address] [facility] [address], [place], [address], 02/21/2025 14:44:13 02/22/2002/21/2025 CBC HGB 14.1 g/dL 13.5-1 8.0 Not Available [facility] [address] [facility] [address], [place], [address], 02/21/2025 14:44:13 02/22/2002/21/2025 CBC HCT 44.3 % 35.0-6 0.0 Not Available [facility] [address] [facility] [address], [place], [address], 02/21/2025 14:44:13 02/22/2002/21/2025 CBC MCV 91.5 fL 80.0-9 9.9 Not Available [facility] [address] [facility] [address], [place], [address], 02/21/2025 14:44:13 02/22/2002/21/2025 CBC MCH 29.1 pg 27.0-3 2.0 Not Available [facility] [address] [facility] [address], [place], [address], 02/21/2025 14:44:13 02/22/2002/21/2025 CBC MCHC 31.8 g/dL 32.0-3 6.0 low Not Available [facility] [address] [facility] [address], [place], [address], 02/21/2025 14:44:13 02/22/2002/21/2025 CBC RDW 16.1 % 11.5-1 4.5 high Not Available [facility] [address], [place], [address], 02/21/2025 14:44:13 02/22/2002/21/2025 CBC plt 223.8 x10 150.0- 451.0 Not Available [facility] [address] [facility] [address], [place], [address], 02/21/2025 14:44:13 02/22/2002/21/2025 CBC lymphocytes % 31.2 % 20.0-5 0.0 Not Available [facility] [address], [place], [address], 02/21/2025 14:44:13 02/22/2002/21/2025 CBC granulcytes % 50.7 % 30.0-7 0.0 Not Available [facility] [address], [place], [address], 02/21/2025 14:44:13 02/22/2002/21/2025 CBC monocytes % 12.7 % 2.0-16 .0 Not Available [facility] [address] [facility] [address], [place], [address], 02/21/2025 14:44:13 02/22/20 25 02/21/2025 CBC granulcytes# 3.6 x10 Not Alena ilable [facility] [address] [facility] [facility], [place], [address], 02/21/2025 14:44:13 02/22/2002/21/2025 CBC lymphocytes # 2.2 x10 Not Available [facility] [address] [facility] [address], [place], [address], 02/21/2025 14:44:13 02/22/20 25 02/21/2025 CBC monocytes # 0.9 x10 Not Avai lable [facility] [address] [facility] [address], [place], [address], 02/21/2025 14:44:13 02/22/20 25 02/21/2025 CMP (MALE ) glucose 101.0 mg/dL 60.0-9 9.0 high Not Available [facility] [address] [facility] [address], [place], [address], 02/21/2025 15:20:28 02/22/20 25 02/21/2025 CMP (MALE ) BUN (blood urea nitrogen) 22.0 mg/dL 10.0-2 6.0 Not Available [facility] [address] [facility] [address], [place], [address], 02/21/2025 15:20:28 02/22/20 25 02/21/2025 CMP (MALE ) creatinine (serum) 0.9 mg/dL 0.4-1. 5 Not Available [facility] [address] [facility] [address], [place], [address], 02/21/2025 15:20:28 02/22/20 25 02/21/2025 CMP (MALE ) BUN/creatini ne ratio 24.44 ratio Not Available [facility] [address] [facility] [address], [place], [address], 02/21/2025 15:20:28 02/22/20 02/21/2025 CMP (MALE ) eGFR calculated 87.9 Not Available [facility] [address] [facility] [place], [address], 02/21/2025 15:20:28 02/22/20 25 02/21/2025 CMP (MALE ) total protein 7.6 g/dL 6.0-8. 5 Not Available [facility] [address] [facility] [address], [place], [address], 02/21/2025 15:20:28 02/22/20 25 02/21/2025 CMP (MALE ) total bilirubin 0.6 mg/dL 0.2-1. 3 Not Available [facility] [address] [facility] [address], [place], [address], 02/21/2025 15:20:28 02/22/20 25 02/21/2025 CMP (MALE ) albumin 4.4 g/dL 3.5-5. 5 Not Available [facility] [address] [facility] [address], [place], [address], 02/21/2025 15:20:28 02/22/20 25 02/21/2025 CMP (MALE ) globulin 3.2 calc Not Available [facility] [address] [facility] [address], [place], [address], 02/21/2025 15:20:28 02/22/20 25 02/21/2025 CMP (MALE ) AST (SGOT) 39.0 U/L 0.0-46 .0 Not Available [facility] [address] [facility], [place], [address], 02/21/2025 15:20:28 02/22/20 25 02/21/2025 CMP (MALE ) altv (SGPT) 28.0 U/L 13.0-6 9.0 normal Not Available [facility] [address] [facility] [address], [place], [address], 02/21/2025 15:20:28 02/22/2002/21/2025 CMP (MALE ) A/G ratio 1.4 ratio Not Available [facility] [address] [facility] [address], [place], [address], 02/21/2025 15:20:28 02/22/20 25 02/21/2025 CMP (MALE ) ALP phos 95.0 U/L 30.0-1 40.0 normal Not Available [facility] [address] [facility] [address], [place], [address], 02/21/2025 15:20:28 02/22/20 25 02/21/2025 CMP (MALE ) calcium 9.5 mg/dL 8.4-10 .5 Not Available [facility] [address] [facility] [address], [place], [address], 02/21/2025 15:20:28 02/22/20 25 02/21/2025 CMP (MALE ) sodium 141.0 mmol/ L 136.0- 145.0 Not Available [facility] [address] [facility] [address], [place], [address], 02/21/2025 15:20:28 02/22/20 25 02/21/2025 CMP (MALE ) potassium 4.4 mmol/ L 3.5-5. 1 Not Available [facility] [address] [facility] [address], [place], [address], 02/21/2025 15:20:28 02/22/20 25 02/21/2025 CMP (MALE ) chloride 102.0 mmol/ L 98.0-1 10.0 normal Not Available [facility] [address] [facility] [address], [place], [address], 02/21/2025 15:20:28 02/22/2015 0202/21/2025 CMP (MALE ) C02 31.0 mmol/ L 22.0-3 1.0 Not Available [facility] [address] [facility] [address], [place], [address], 02/21/2025 15:20:28 02/22/20 25 02/21/2025 CMP (MALE ) anion gap 8.0 calc Not Available [facility] [address] [facility] [address], [place], [address], 02/21/2025 15:20:28 02/22/20 25 02/21/2025 CMP (MALE ) osmolality 294.4 calc Not Available [facility] [address] [facility] [address], [place], [address], 02/21/2025 15:20:28 02/22/20 25 02/22/2025 IRON, TIBC AND ALLAN TIN PANEL iron, total 68 mcg/d L 50-180 normal Not Available [facility] [place] [address] [place], [address], 02/22/2025 05:54:01 02/22/20 25 02/22/2025 IRON, TIBC AND ALLAN TIN PANEL iron binding capacity 318 mcg/d L_(ca lc) 250-42 5 normal Not Available [place] [address] [place], [address], 02/22/2025 05:54:01 02/22/20 25 02/22/2025 IRON, TIBC AND ALLAN TIN PANEL % saturation 21 %_(ca lc) 20-48 normal Not Available [facility] [place] [address] [place], [address], 02/22/2025 05:54:01 02/22/20 25 02/22/2025 IRON, TIBC AND ALLAN TIN PANEL ferritin 152 NG/mL 24-380 normal Not Available [facility] [address] [address] [place], [address], 02/22/2025 05:54:01 02/22/20 25 02/22/2025 CULTU RE, URINE , ROUTI NE culture, urine, routine SEE NOTE CULTU RE, URINE , ROUTI NE Micro Numbe r: [id number] Test Statu s: Final Speci men Sourc e: Urine , clean catch Speci men Quali ty: Adequ ate Resul t: No Growt h Not Available [address] [address] [address], [place], [address], 02/23/2025 00:57:18 11/19/19 25 11/18/2024 XR, chest , 2 view No observ ation record ed. [address] ([facility]) [address] [place], [address], 11/18/2024 11:57:29 11/20/19 25 11/18/2024 XR, chest , 2 view No observ ation record ed. [email or web address] [facility] ([facility]) [address] [place], [address], 11/19/2024 17:59:10 11/21/19 25 01/24/2016 sleep study , diagn ostic (PROC ) No observ ation record ed. [email or web address] Not Available 11/20 10:58:18 02/20/20 25 11/18/2024 XR, chest , 2 view No observ ation record ed. [email or web address] ([facility]) [address] [place], [address], 02/19/2025 17:15:41 Result Notes None recorded. Problems Name Problem SNOMED Code Status Onset Date Resolution Date Notes Provider Name and Address Organization Details Recorded Time Cholecys tectomy planned 570481808 Completed 199706/28/2018 Cholecys tectomy - Status is Inactive ; Date: 1997; 06/29/19 19 8:32AM by Marlin Avitia RN, Annotati on/Adden dum; Promoted ; acuity set as *; Not Available [facility] 3 03:08:54 Total colonosc opy Completed 201806/28/2018 Colonosc opy - Status is Inactive ; Normal, 2004.; 06/29/19 19 8:32AM by Marlin Avitia RN, Annotati on/Adden dum; Promoted ; acuity set as *; Not Available [facility] 3 03:08:53 Rachel- Sparks tear 538814808 Active 2018 Rachel- Sparks Tear; [facility] Date: 08/2018; 01/04/20 22 7:14AM by Marguerite Gardner LPN, Office Visit; Promoted ; acuity set as *; MARGUERITE bridges [facility] 5 20:47:43 Large prostate 812115458 Active 2021 BPH (BENIGN PROSTATI C HYPERPLA CATHY); Recorded 01/04/20 22 7:14AM by Marguerite Gardner LPN, Office Visit; Promoted ; acuity set as *; BENIGN LOCALIZE D HYPERPLA CATHY OF PROSTATE - Status is Inactive ; Recorded 06/25/19 22 8:12AM by Marguerite Gardner LPN, Annotati on/Adden dum; Promoted ; acuity set as *; ; Start Date : 06/25/19 MARGUERITE bridges [facility] 20:47:35 Depressi ve disorder 72866739 Active 2021 DEPRESSI ON; Recorded 01/04/20 22 7:14AM by Marguerite Gardner LPN, Office Visit; Promoted ; acuity set as *; MARGUERITE bridges [facility] 20:45:01 Erectile dysfunct ion 207909837 Active 2021 IMPOTENC E OF ORGANIC ORIGIN; Recorded 01/04/20 22 7:14AM by Marguerite Gardner LPN, Office Visit; Promoted ; acuity set as *; ERECTIL E DYSFUNCT ION; Recorded 06/27/19 10:27AM by Marguerite Gardner LPN, Annotati on/Adden dum; Promoted ; acuity set as *; ; Start Date : 06/27/19 MARGUERITE bridges [facility] 20:45:06 Injury of back Active 2021 industri al injury causing neck and back injury; Pain Agustín. Aria Estes in [facility]. Home. Office visit every 2 months Neurosur geon: Yovanny in [facility]. Office visit 1-2 x's year; 01/04/20 7:14AM by Marguerite Gardner LPN, Office Visit; Promoted ; acuity set as *; MARGUERITE bridges [facility] 20:47:23 Obstruct gregor sleep apnea syndrome 46066044 Active 2021 Obstruct gregor sleep apnea; 01/04/20 7:14AM by Marguerite Gardner LPN, Office Visit; Promoted ; acuity set as *; MARGUERITE bridges [facility] 16:59:41 Gastroes ophageal reflux disease 704264163 Active 2021 GERD (GASTROE SOPHAGEA L REFLUX DISEASE) ; Recorded 01/04/20 10:25AM by Ivette Cordoba PA-C, Office Visit; Promoted ; acuity set as *; MARGUERITE bridges [facility] 12:32:05 Hyperlip idemia 61722824 Active 2021 HYPERLIP IDEMIA; Recorded 01/04/20 7:14AM by Marguerite Gardner LPN, Office Visit; Promoted ; acuity set as *; MARGUERITE bridges [facility] 20:45:55 Hyperten sive disorder 52314114 Active 2021 IDRIS BILLS; Recorded 01/04/20 22 10:25AM by Ivette Cordoba PA-C, Office Visit; Promoted ; acuity set as *; MARGUERITE JJ bridges, [facility] 20:47:19 History of total knee arthropl asty 97951420772 05 Completed 202206/19/2024 Removal Reason: resolved with knee replacem ent MARGUERITE bridges, [facility] 20:45:48 Vascular dementia 453776011 Active 2022 MARGUERITE bridges [facility] 20:47:59 Long-ter m current use of anticoag ulant 977360525 Active 2022 MARGUERITE bridges [facility] 20:47:39 Chronic low back pain 636861563 Active 2022 MARGUERITE bridges, [facility] 12:58:09 Chronic atrial fibrilla tion 837054980 Active 2022 MARGUERITE bridges [facility] 20:44:47 Iron deficien cy anemia 31962220 Active 2022 MARGUERITE bridges [facility] 20:47:30 Chronic cough 84407371 Active 2022 MARGUERITE bridges [facility] 17:00:19 Insomnia 076895421 Active 2022 MARGUERITE bridges [facility] 20:47:27 Anemia 826008946 Active 2022 MARGUERITE JJ null, [facility] 20:44:40 Idris bills 03037444 Active 2022 MARGUERITE HANGOZIFJEMAL null, [facility] 20:45:10 Pain of left knee joint 92544719023 4107 Active 2022 MARGUERITE JJ null, [facility] 20:47:52 Gout 02205183 Active 2022 MARGUERITE JJ null, [facility] 20:45:18 Acquired coagulat ion factor deficien cy 88467178 Active 2023 MARGUERITE GARDNER null, [facility] 20:44:36 Morbid obesity 925903206 Active 2023 MARGUERITE JJ null, [facility] 20:47:48 Vascular dementia without behavior al disturba [facility] 70008357381 685482 Active 2023 MARGUERITE GARDNER null, [facility] 20:48:06 Anxiety 95670386 Active 2023 MARGUERITE JJ null, [facility] 20:44:44 Problem Notes None recorded. Procedures Surgical History Date Name Laterality Status Provider Name and Address Organization Details Recorded Time 06/03/19 25 transurethral prostatectomy completed IVETTE CORDOBA PA-C [address] [place] [address], [id number], [facility] 06/18/2024 11:19:38 06/01/19 24 colonoscopy completed MARGUERITE JJ [facility], Harika 06/06/2023 10:49:25 09/27/19 23 revision of knee arthroplasty completed IVETTE CORDOBA PA-C [address] [place] [address], [id number], [facility], [place] 10/17/2022 16:03:13 06/25/19 22 Psa screening completed [facility] 04/13/2023 08:28:09 01/04/20 18 [facility]12[facility] 08:32:33 Imaging Results None recorded. Procedure Notes None recorded. Medical Equipment None Reported. Allergies Allergen ID Allergen Name Allergen Category Reaction Reaction Severity Criticality Documentation Date Start Date Code Code System Note Provider Name and Address Organization Details Recorded Time 98406 pantopraz ole sodium medicatio n abdominal pain Not available Not available 11/19/2022 95275 1 RxNorm React ion: too much gas; Comme nt: Recor ded 01/03 7:14A M by Vero menendez, GANG MOWER OPERATOR, Offic e Visit ; Promo al; Signi fican ce: *; Reaso n: Adver se react ion to drug; ; Not Available [facility] 3 02:23:40 30240 lansopraz ole medicatio n diarrhea Not available Not available 11/19/2022 29722 RxNorm React ion: Diarr hea; Comme nt: Recor ded 01/03 7:14A M by Vero menendez, GANG MOWER OPERATOR, Offic e Visit ; Promo al; Signi fican ce: *; Reaso n: Adver se react ion to drug; ; Not Available [facility] 3 02:23:40 4103 adhesive environme nt,medica tion Not available Not available Not available 09/29/2022 [facility] 11:27:28 4104 hydromorp humaira medicatio n Not available Not available Not available 09/29/2022 3423 RxNorm MARGUERITE bridges [facility] 3 11:27:39 4105 midazolam hydrochlo ride medicatio n Not available Not available Not available 09/29/2022 18344 8 RxNorm MARGUERITE bridges [facility], [facility] 3 11:27:50 4106 Augmentin medicatio n Not available Not available Not available 09/29/2022 74401 2 RxNorm MARGUERITE bridges [facility] 3 11:28:26 4107 Dilaudid medicatio n Not available Not available Not available 09/29/2022 00718 3 RxNorm MARGUERITE bridges [facility], CristalLBrendan 3 11:36:30 Medications Name Sig Start Date Stop Date Status Note LastModified by Organization Details LastModified Time BIPAP machine 01/22 completed BIPAP ORDER Not Available Not Available Not Available losartan 50 mg tablet TAKE 1 TABLET BY MOUTH ONCE DAILY active Not Available Not Available No t Available cetirizin e 5 mg-pseudo ephedrine ER 120 mg tablet,ex tended release,1 2hr Take 1 tablet every 12 hours by oral route at bedtime. 2024 active Not Available Not Available Not Avai lable celecoxib 200 mg capsule TAKE 1 CAPSULE BY MOUTH ONCE DAILY active Not Available Not Available No t Available penicilli n V potassium 250 mg tablet Take 2 tablets twice a day by oral route. 05/03 completed Not Available Not Available Not Available cyclobenz aprine 10 mg tablet TAKE 1 TABLET BY MOUTH ONCE DAILY 12/26 completed Not Available Not Available Not Available furosemid e 40 mg tablet TAKE 1 TABLET BY MOUTH ONCE DAILY active Not Available Not Available No t Available Miralax 17 gram/dose oral powder Take 17 g as needed by oral route. 05/03 completed Not Available Not Available Not Available methocarb zoie 500 mg tablet TAKE 1 TABLET BY MOUTH THREE TIMES DAILY FOR 14 DAYS 12/26 completed Not Available Not Available Not Available acetamino phen 325 mg tablet 05/17 completed Not Available Not Available Not Available doxycycli ne hyclate 100 mg capsule TAKE ONE CAPSULE BY MOUTH TWICE DAILY FOR SEVEN DAYS 02/21 completed Not Available Not Available Not Available clindamyc in HCl 300 mg capsule TAKE 1 CAPSULE BY MOUTH THREE TIMES DAILY active Not Available Not Available No t Available trazodone 50 mg tablet TAKE 1 TABLET BY MOUTH ONCE DAILY AT BEDTIME active Not Available Not Available No t Available indapamid e 2.5 mg tablet TAKE 1/2 (ONE-JOANN F) TABLET BY MOUTH IN THE MORNING active Not Available Not Available No t Available tizanidin e 4 mg tablet TAKE 1 TABLET BY MOUTH TWICE DAILY active Not Available Not Available No t Available hydrocodo ne 5 mg-acetam inophen 325 mg tablet active Not Available Not Available Not Available donepezil 10 mg tablet TAKE 1 TABLET BY MOUTH ONCE DAILY active Not Available Not Available No t Available ondansetr on HCl 4 mg tablet active Not Available Not Available No t Available alendrona te 70 mg tablet TAKE 1 TABLET BY MOUTH ONCE A WEEK WITH 8 OUNCES OF WATER AND REMAIN UPRIGHT FOR 30 MINUTES active Not Available Not Available No t Available penicilli n V potassium 500 mg tablet TAKE 1 TABLET BY MOUTH TWICE DAILY active Not Available Not Available No t Available metronida zole 500 mg tablet TAKE ONE TABLET BY MOUTH EVERY 8 HOURS FOR 35 DAYS 05/03 completed Not Available Not Available Not Available allopurin ol 100 mg tablet TAKE 2 TABLETS BY MOUTH ONCE DAILY active Not Available Not Available No t Available tramadol 50 mg tablet TAKE 1 TABLET BY MOUTH EVERY 8 HOURS NEEDED FOR SEVERE PAIN FOR 10 DAYS active Not Available Not Available No t Available acetamino phen 500 mg tablet active Not Available Not Available No t Available triamcino lone acetonide 0.1 % topical cream APPLY A THIN LAYER TO THE AFFECTED AREA(S) 2 TIMES DAILY active Not Available Not Available No t Available oxycodone 15 mg tablet TAKE 1 TABLET BY MOUTH EVERY 8 HOURS NEEDED FOR PAIN 05/17 completed Not Available Not Available Not Available diltiazem ER 120 mg capsule,e xtended release 12 hr TAKE 1 CAPSULE BY MOUTH ONCE DAILY 12/26 completed Not Available Not Available Not Available oxycodone -acetamin ophen 5 mg-325 mg tablet TAKE 1/2 TO 1 (ONE-JOANN F TO ONE) TABLET BY MOUTH EVERY 6 HOURS NEEDED DO NOT EXCEED 1 TABLET PER DAY OR 30 TABLETS IN A MONTH active Not Available Not Available No t Available terbinafi ne HCl 250 mg tablet TAKE 1 TABLET BY MOUTH ONCE DAILY 12/26 completed Not Available Not Available Not Available hydromorp humaira 2 mg tablet TAKE 1 TABLET BY MOUTH EVERY 6 HOURS NEEDED FOR 30 DAYS . DO NOT EXCEED 2 PER 24 HOURS active Not Available Not Available No t Available potassium chloride ER 20 mEq tablet,ex tended release(p art/cryst ) TAKE 1 TABLET BY MOUTH ONCE DAILY active Not Available Not Available No t Available magnesium oxide 400 mg (241.3 mg magnesium ) tablet TAKE 1 TABLET BY MOUTH TWICE DAILY active Not Available Not Available No t Available lorazepam 0.5 mg tablet Take 1 tablet twice a day by oral route as needed. active Not Available Not Available No t Available famciclov ir 500 mg tablet TAKE ONE TABLET BY MOUTH EVERY TWELVE HOURS 10/21 completed Not Available Not Available Not Available oxycodone -acetamin ophen 10 mg-325 mg tablet TAKE 1 TABLET BY MOUTH EVERY 4 TO 6 HOURS NEEDED . DO NOT EXCEED 4 PER 24 HOURS active Not Available Not Available No t Available tamsulosi n 0.4 mg capsule TAKE 1 CAPSULE BY MOUTH TWICE DAILY active Not Available Not Available No t Available phenazopy ridine 100 mg tablet TAKE ONE TABLET BY MOUTH THREE TIMES DAILY FOR SEVEN DAYS NEEDED FOR URINARY DISCOMFO RT active Not Available Not Available No t Available cephalexi n 500 mg capsule 11/22 completed Not Available Not Available Not Available pantopraz ole 40 mg tablet,de layed release TAKE 1 TABLET BY MOUTH ONCE DAILY active Not Available Not Available No t Available nystatin 100,000 unit/gram topical cream APPLY TO THE AFFECTED AREA(S) BY TOPICAL ROUTE 2 TIMES PER DAY 09/29 completed Not Available Not Available Not Available indapamid e 1.25 mg tablet TAKE 1 TABLET BY MOUTH ONCE DAILY IN THE MORNING 11/22 completed Not Available Not Available Not Available docusate sodium 100 mg capsule active Not Available Not Available Not Available gabapenti n 300 mg capsule TAKE 2 CAPSULES BY MOUTH THREE TIMES DAILY active Not Available Not Available No t Available diclofena c sodium 75 mg tablet,de layed release Take 1 tablet twice a day by oral route. 09/29 completed Not Available Not Available Not Available diltiazem CD 120 mg capsule,e xtended release 24 hr TAKE 1 CAPSULE BY MOUTH ONCE DAILY 02/21 completed Not Available Not Available Not Available hydrochlo rothiazid e 25 mg tablet Take 1 tablet every day by oral route. 09/29 completed Not Available Not Available Not Available digoxin 125 mcg (0.125 mg) tablet Take 1 tablet every day by oral route. 09/29 completed Not Available Not Available Not Available furosemid e 20 mg tablet Take 1 tablet every day by oral route. 09/29 completed Not Available Not Available Not Available metoprolo l succinate ER 25 mg tablet,ex tended release 24 hr TAKE 1 TABLET BY MOUTH ONCE DAILY active Not Available Not Available No t Available celecoxib 100 mg capsule TAKE 1 CAPSULE BY MOUTH TWICE DAILY active Not Available Not Available No t Available cefdinir 300 mg capsule TAKE ONE CAPSULE BY MOUTH EVERY TWELVE HOURS FOR 14 DAYS 06/14 completed Not Available Not Available Not Available fluticaso ne propionat e 50 mcg/actua tion nasal spray,vincent pension USE 1 SPRAY(S) IN EACH NOSTRIL TWICE DAILY active Not Available Not Available No t Available doxycycli ne hyclate 100 mg tablet two times daily 01/12 completed 0; Recorded 01/04/20 22 10:00AM by Marguerite Gardner LPN, Office Visit; Not Available Not Available Not Available docusate sodium 100 mg tablet Take 2 tablets twice a day by oral route. active Not Available Not Available No t Available metoclopr amide 10 mg tablet USE DIRECTED PER COLON PREP INSTRUCT IONS 12/26 completed Not Available Not Available Not Available tobramyci n 0.3 %-dexamet hasone 0.1 % eye drops,vincent pension INSTILL 1 DROP INTO AFFECTED EYE(S) EVERY 6 HOURS 10/20 completed Not Available Not Available Not Available oxycodone 5 mg tablet TAKE 1 TO 2 TABLETS BY MOUTH EVERY 4 HOURS NEEDED FOR SEVERE PAIN AFTER OTHER PAIN MEDICATI ONS HAVE BEEN TAKEN 02/21 completed Not Available Not Available Not Available Bactrim DS 800 mg-160 mg tablet Take 1 tablet every 12 hours by oral route for 7 days. 03/07 completed Not Available Not Available Not Available magnesium 200 mg tablet Take 1 tablet every day by oral route as directed . 12/26 completed Not Available Not Available Not Available buprenorp chandrika HCl 8 mg sublingua l tablet PLACE 1 TABLET UNDER THE TONGUE THREE TIMES DAILY (FILL ON OR AFTER 02/24) active Not Available Not Available No t Available cyclobenz aprine 5 mg tablet TAKE 1 TABLET BY MOUTH ONCE DAILY AT BEDTIME NEEDED FOR 30 DAYS 08/31 completed Not Available Not Available Not Available rosuvasta tin 10 mg tablet TAKE 1 TABLET BY MOUTH ONCE DAILY active Not Available Not Available No t Available memantine 10 mg tablet TAKE 1 TABLET BY MOUTH TWICE DAILY active Not Available Not Available No t Available DILT-XR 120 mg capsule, extended release Take 1 capsule every day by oral route. 02/21 completed Not Available Not Available Not Available duloxetin e 30 mg capsule,d elayed release TAKE 1 CAPSULE BY MOUTH ONCE DAILY ALONG WITH 60MG CAPSULE FOR A TOTAL DAILY DOSE OF 90MG 12/26 completed Not Available Not Available Not Available duloxetin e 60 mg capsule,d elayed release TAKE 1 CAPSULE BY MOUTH ONCE DAILY active Not Available Not Available No t Available ascorbic acid (vitamin C) 500mg 1/2 bid 05/03 completed Not Available Not Available Not Available oxycodone three times daily as needed 01/12 completed 0; Recorded 01/04/20 22 7:14AM by Marguerite Gardner LPN, Office Visit; Not Available Not Available Not Available aspirin 81mg qd 12/26 completed Not Available Not Available Not Available nystatin two times daily 01/12 completed Recorded 07/02/19 22 7:05AM by Marguerite Gardner LPN, Office Visit; Refill Quantity : 80; Gram; Not Available Not Available Not Available Fosamax weekly, see notes 01/12 completed Take with 8 ouces of water and remain upright for 30 minutes vo KM/dh; 54978; Recorded 04/18/20 22 11:47AM by Génesis Gonzalez (Authori emmanuel through Chris Byrd MD), Refill Request; Refill Quantity : 12; Tablet; Not Available Not Available Not Available digoxin daily 12/21 completed 0; Recorded 01/04/20 7:14AM by Marguerite Gardner LPN, Office Visit; Not Available Not Available Not Available ferrous sulfate 325mg qd 01/12 completed Not Available Not Available Not Available Nasonex two times daily 10/20 completed Not Available Not Available Not Available hydrochlo rothiazid e daily 01/12 completed vo KM/; 29382; Recorded 01/04/20 7:14AM by Marguerite Gardner LPN (Authori zed through Ivette Cordoba PA-C), Office Visit; Refill Quantity : 90; Tablet; Not Available Not Available Not Available Neurontin three times daily 01/12 completed vo KM/; 28377; Recorded 01/04/20 9:55AM by Marguerite Gardner LPN (Authori zed through Ivette Cordoba PA-C), Annotati on/Adden dum; Refill Quantity : 270; Capsule; Not Available Not Available Not Available Multivita mins daily 01/12 completed 0; Recorded 01/04/20 7:14AM by Marguerite Gardner LPN, Office Visit; Not Available Not Available Not Available multivita min 1 qd 01/12 completed Not Available Not Available Not Available Diltiazem HCL ER daily 01/[address] TILLMAN; 0; Recorded 04/20/20 1:51PM by Marguerite Gardner LPN, Historic al Summary; Not Available Not Available Not Available Glucosami ne-Chondr oitin Complx two times daily active Not Available Not Available No t Available Crestor daily 01/12 completed vo KM/dh; Recorded 07/13/19 6:53PM by Ivette Cordoba PA-C, Refill Request; Refill Quantity : 90; Tablet; Not Available Not Available Not Available Cialis daily 05/03 completed To cut tablets in half and take 30 minutes prior to sexual activity . May use a 1/4 tablet as well.; Recorded 01/04/20 7:14AM by Marguerite Gardner LPN, Office Visit; Refill Quantity : 12; Tablet; Not Available Not Available Not Available duloxetin e at bedtime 01/12 completed vo /; [id number]; Recorded 01/04/20 9:59AM by Marguerite Gardner LPN (Authori emmanuel through Ivette Cordoba PA-C), Annotati on/Adden dum; Refill Quantity : 90; Capsule; Not Available Not Available Not Available FeroSul 325 mg (65 mg iron) tablet Take 1 tablet twice a day by oral route as directed for 90 days. active Not Available Not Available No t Available oxycodone 10 mg tablet Take 1 tablet every 4 hours by oral route. 05/03 completed Not Available Not Available Not Available diclofena c 1 % topical gel active Not Available Not Available Not Available Prostate Health Formula 1000mg 2caps bid 08/31 completed Not Available Not Available Not Available Gavilyte- C 240 gram-22.7 2 gram-6.72 gram-5.84 gram oral solution TAKE DIRECTED active Not Available Not Available No t Available Sacch boulardi- Bacill coag-FOS one po bid active probioti c Not Available Not Available Not Available cetirizin e 10 mg capsule Take 1 capsule every day by oral route. 10/20 completed Not Available Not Available Not Available Dexilant 60 mg capsule, delayed release TAKE ONE CAPSULE BY MOUTH EVERY DAY 12/26 completed Not Available Not Available Not Available Dexilant daily 01/12 completed written rx given to pt.he is going to take to [facility] to get the [facility] 340B pricing say she can verify they got it from there pcp [facility]; [id number]; Recorded 04/22/20 6:36AM by Marguerite Gardner LPN (Authori emmanuel through Ivette Cordoba PA-C), Office Visit; Refill Quantity : 90; Capsule; Not Available Not Available Not Available buprenorp chandrika 8 mg-naloxo ne 2 mg subling[address] l film PLACE 1/2 (ONE-JOANN F) STRIP UNDER THE TONGUE THREE TIMES DAILY FOR 30 DAYS 05/17 completed Not Available Not Available Not Available Xarelto 20 mg tablet TAKE 1 TABLET BY MOUTH DAILY active Not Available Not Available No t Available Stimulant Laxative Plus 8.6 mg-50 mg tablet active Not Available Not Available Not Available potassium chloride ER 20 mEq tablet,ex tended release TAKE 1 TABLET BY MOUTH ONCE DAILY FOR 30 DAYS 05/03 completed Not Available Not Available Not Available naloxone 4 mg/actuat ion nasal spray CALL 911. USE ONE FULL SPRAY IN ONE NOSTRIL ONE TIME. REPEAT EVERY 2-3 MINUTES NEEDED IF NO OR MINIMAL RESPONSE . active Not Available Not Available No t Available Xtampza ER 9 mg capsule sprinkle TAKE ONE CAPSULE BY MOUTH TWICE DAILY FOR 14 DAYS 05/03 completed Not Available Not Available Not Available calcium 200 mg-vitami n D3 1.25 mcg-magne sium 50 mg capsule Take 1 capsule twice a day by oral route. active Not Available Not Available No t Available Prostate Max Plus 60mg 2tabs bid 12/26 completed Not Available Not Available Not Available Vitals Date Recorded Body height Body mass index (BMI) Body weight Oxygen saturation Oxygen saturation in Arterial blood by Pulse oximetry Heart rate Respiratory rate Body temperature Systolic And Diastolic Provider Name and Address Organization Details Last Updated DateTime 5 184.15 cm 36.1 kg/m2 374435. 94 g 96 % 96 % 72 /min 18 /min 97.2 [degF] 120/70 mm[Hg] [facility] 5 15:36:44 Date Recorded Body height Body mass index (BMI) Body weight Oxygen saturation Oxygen saturation in Arterial blood by Pulse oximetry Heart rate Respiratory rate Body temperature Systolic And Diastolic Provider Name and Address Organization Details Last Updated DateTime 5 184.15 cm 36.2 kg/m2 759243. 53 g 97 % 97 % 76 /min 18 /min 97 [degF] 120/80 mm[Hg] [facility] 5 15:45:45 Date Recorded Body height Body mass index (BMI) Body weight Oxygen saturation Oxygen saturation in Arterial blood by Pulse oximetry Heart rate Respiratory rate Body temperature Systolic And Diastolic Provider Name and Address Organization Details Last Updated DateTime 5 184.15 cm 36.5 kg/m2 233002. 72 g 97 % 97 % 72 /min 18 /min 97 [degF] 138/80 mm[Hg] [facility] 5 10:07:59 Date Recorded Body height Body mass index (BMI) Body weight Oxygen saturation Oxygen saturation in Arterial blood by Pulse oximetry Heart rate Respiratory rate Body temperature Systolic And Diastolic Provider Name and Address Organization Details Last Updated DateTime 5 184.15 cm 35.3 kg/m2 191727. 39 g 99 % 99 % 88 /min 18 /min 97.9 [degF] 130/80 mm[Hg] [facility] 5 13:42:17 Date Recorded Body height Body mass index (BMI) Body weight Oxygen saturation Oxygen saturation in Arterial blood by Pulse oximetry Heart rate Respiratory rate Body temperature Provider Name and Address Organization Details Last Updated DateTime 5 184.15 cm 35.4 kg/m2 996605. 98 g 98 % 98 % 80 /min 20 /min 98 [degF] [facility] 5 13:24:36 Social History None recorded. Functional Status None recorded. Mental Status None recorded. Family History Nothing Reported. Medical History No medical history recorded. Immunizations Vaccine Type Date Status Note Provider Nam e and Address Organization Details Recorded Time pneumococcal polysaccharide PPV23 7 completed Not Available [facility] 06/06/2023 10:31:08 Influenza, split virus, trivalent, preservative 8 completed Not Available [facility] 06/06/2023 10:31:08 Influenza, split virus, trivalent, preservative 8 completed Not Available [facility] 06/06/2023 10:31:08 Influenza, MDCK, quadrivalent, PF 0 completed IVETTE CORDOBA PA-C [address] [place] [address], [phone], [facility] 10/17/2022 16:00:43 Influenza, high-dose, quadrivalent, PF 2 completed IVETTE CORDOBA PA-C [address] [place], [address], [facility] 10/17/2022 16:00:43 COVID-19, mRNA, LNP-S, PF, 100 mcg/0.5mL dose or 50 mcg/0.25mL dose 1 completed IVETTE CORDOBA PA-C [address] [place] [address], [phone], [facility] 10/17/2022 16:00:43 COVID-19, mRNA, LNP-S, PF, 100 mcg/0.5mL dose or 50 mcg/0.25mL dose 1 completed IVETTE CORDOBA PA-C [address] [place] [address], [phone], [facility] 10/17/2022 16:00:43 COVID-19, mRNA, LNP-S, PF, 100 mcg/0.5mL dose or 50 mcg/0.25mL dose 1 completed IVETTE CORDOBA PA-C [address] [place] [address], [phone], [facility] 10/17/2022 16:00:43 Pneumococcal conjugate PCV20, polysaccharide FBS030 conjugate, adjuvant, PF 2 completed IVETTE CORDOBA PA-C [address] [place] [address], [phone], [facility] 10/17/2022 16:00:43 COVID-19, mRNA, LNP-S, bivalent, PF, 50 mcg/0.5 mL or 25mcg/0.25 mL dose 2 completed IVETTE CORDOBA PA-C [address] [place], [address], [facility] 10/17/2022 16:00:43 Tdap 2 completed IVETTE CORDOBA PA-C [address] [place] [address], [phone], [facility] 10/17/2022 16:00:43 Pneumococcal conjugate PCV 13 8 completed IVETTE CORDOBA PA-C [address] [place] [address], [phone], [facility] 10/17/2022 16:00:44 Influenza, split virus, trivalent, preservative 4 completed IVETTE CORDOBA PA-C [address] [place] [address], [phone], [facility] 10/17/2022 16:00:44 Td (adult), 2 Lf tetanus toxoid, preservative free, adsorbed 7 completed IVETTE CORDOBA PA-C [address] [place] [address], [phone], [facility] 10/17/2022 16:00:44 Hep A-Hep B 8 completed IVETTE CORDOBA PA-C [address] [place] [address], [address], [facility] 10/17/2022 16:00:44 Hep A-Hep B 7 completed IVETTE CORDOBA PA-C [address] [place] [address], [phone], [facility] 10/17/2022 16:00:44 Hep A-Hep B 7 completed IVETTE CORDOBA PA-C [address] [place] [address], [phone], [facility] 10/17/2022 16:00:44 Influenza, high-dose, trivalent, PF 4 completed Not Available [facility] 02/21/2025 13:02:15 Influenza, adjuvanted, quadrivalent, PF 3 completed MARGUERITE bridges [facility] 01/12/2023 15:01:59 Past Encounters Encounter ID Performer Location Encounter Start Date Encounter Closed Date Diagnosis/Indication Diagnosis SNOMED-CT Code Diagnosis ICD10 Code Diagnosis IMO Codes Diagnosis Note [id number] IVETTE CORDOBA PA-C [facility] ([facility]) [address] [place] [id number] 5 08/11/2022 11:01:48 08/17/2022 09:18:53 Candidiasis of skin 29662921 B37.2 Prosthetic joint infection 723377661 T84.54XD FACE to FACE for lift chair. Due to pain mobility issues from his failed knee surgery and post op infection he is in need of a lift chair. He is sitting in all day currently. It would greatly improve his ADL and quality of life Essential hypertension 09320812 I10 [id number] IVETTE CORDOBA PA-C [facility] ([facility]) [address] [place] [id number] 5 10/12/2022 14:31:36 10/18/2022 11:46:58 Iron deficiency anemia 99738432 D50.9 CCA form filled out during today's office visit Chronic at rial fibrillation 701490623 I48.20 Chronic low back pain 27 0970959 M54.50 Sees pain tx. Long-term current use of anticoagulant 921150700 Z79.01 Xarelto for Afib Vascular dementia 053472 004 F01.50 History of total knee arthroplasty 7072938184 105 Z96.659 failed knee with infection and multiple surgeries. Hospital i npatient stay within past 30 days 9813152100 106 Z76.89 [id number] IVETTE CORDOBA PA-C [facility] ([facility]) [address] [place] [id number] 5 01/12/2023 13:52:27 01/12/2023 15:16:12 Administration of influenza vaccine 54082084 Z23 Essential hypertension 11628106 I10 Anemia 929050822 D64.9 resolved Pain of le ft knee joint 0098736852 21843 M25.562 doing well post op. lifetime use of PCN [id number] IVETTE CORDOBA PA-C [facility] ([facility]) [address] [place] [address] [id number] 5 05/03/2023 13:35:18 05/04/2023 10:43:09 Minimal cognitive impairment 053632519 R41.89 MOCA 30CCA form filled out during today's office visit Depressive disorder 3548 9007 F32.A increase his cymbalta to 90 mg po qd. Low back pain 551619041 M54.50 Vascular d ementia without behavioral disturbance 4068217563 8044144 F01.50 Chronic at rial fibrillation 252732963 I48.20 diltiazem. xarelto Essential hypertension 81810985 I10 Morbid obesity 736072143 E66.01 Hyperlipidemia 41068414 E78.5 on statin Acquired c oagulation factor deficiency 74066507 D68.4 xarelto [id number] IVETTE CORDOBA PA-C [facility] ([facility]) [address] [place] [address] [id number] 5 06/06/2023 10:28:12 06/06/2023 11:32:41 Vascular dementia 871418636 F01.50 normal labs last month. Chronic low back pain 27 7770491 M54.50 Sees pain tx.reviewe d xrays with pt. [id number] IVTETE CORDOBA PA-C [facility] ([facility]) [address] [place] [id number] 5 06/21/2023 13:52:18 06/21/2023 14:54:14 Obstructive sleep apnea syndrome 83056114 G47.33 has new sleep study scheduled at [facility] August 20. I advised him not to take the Trazadonet o decrease his respirator y drive.And to call Dr. Santamaria office ENT to check base of his tongue, vocal cords Hypoxia 560080866 R09.02 Face to Face for Overnight pulse O2 to check for O2 levels while sleeping due to rescent increase in apnea episodes and feeling SOB. [id number] IVETTE CORDOBA PA-C [facility] ([facility]) [address] [place] [address] [id number] 5 09/05/2023 10:35:25 09/05/2023 14:16:45 Fatigue 58515239 R53.83 reviewed all his new supplement s. most are fine. Some are duplicates especially the B complex family. Essential hypertension 88726251 I10 Chronic low back pain 27 5766741 M54.50 Sees pain tx.reviewe d xrays with pt. Cramp in l ower leg associated with rest 578632593 G47.62 [id number] IVETTE CORDOBA PA-C [facility] ([facility]) [address] [place] [address] [id number] 5 10/31/2023 11:40:06 10/31/2023 17:05:53 Cramp in lower leg associated with rest 540705539 G47.62 Mixed anxi ety and depressive disorder 742303844 F41.8 Vascular dementia 069094 004 F01.50 I think pt alot of pt anxiety and anger towards his is coming from his upcoming surgery and mixed with his lack of processing skills secondary to his dementia. I tried to reassure him we are all on his side and will be her to help him thru his next surgery. Depressive disorder 3548 9007 F32.A [id number] IVETTE CORDOBA PA-C [facility] ([facility]) [address] [place] [address] [id number] 5 11/23/2023 10:59:28 11/23/2023 17:12:55 Depressive disorder 78979314 F32.A pt is more emotionall y stable this week. No changes made.Suppo rt given and to keep up us updated with his knee [id number] min spent in room Vascular d ementia without behavioral disturbance 6292100430 9533911 F01.50 [id number] IVETTE CORDOBA PA-C [facility] ([facility]) [address] [place] [address] [id number] 5 12/20/2023 13:32:13 12/20/2023 17:57:20 Acute sinusitis 20561667 J01.90 Rib pain 937830079 R07.8 1 xray shows rib fx of the 9th rib. [id number] IVETTE CORDOBA PA-C [facility] ([facility]) [address] [place] [address] [id number] 5 01/23/2024 10:39:44 02/20/2024 08:00:04 Transient cerebral ischemia 407140353 G45.9 medical records reviewed. pt meds reviewed and med list updated.St ay on ASA. Also on Xarelto. [id number] IVETTE CORDOBA PA-C [facility] ([facility]) [address] [place] [address] [id number] 5 05/17/2024 12:24:13 05/17/2024 15:08:56 Acute sinusitis 85104507 J01.90 Chronic rhinitis 4599512 6 J31.0 Benign pro static hyperplasia 484795214 N40.1 Scheduled for TURP with DR. Domínguez next week. [id number] IVETTE CORDOBA PA-C [facility] ([facility]) [address] [place] [address] [id number] 5 06/18/2024 10:58:18 06/18/2024 11:41:48 Chronic low back pain 862123602 M54.50 Sees pain tx. Pain of le ft knee joint 8168820292 55258 M25.562 hx of 6 surgeries on this knee. doing well post op. lifetime use of PCN Morbid obesity 235119916 E66.01 Vascular d ementia without behavioral disturbance 3692605459 7049918 F01.50 Chronic at rial fibrillation 919390237 I48.20 Diltiazem and Xarelto Depressive disorder 3548 9007 F33.0 STable on Cymbalta. Hyperlipidemia 71166955 E78.5 on statin Essential hypertension 28116131 I10 stable on Losartan Opioid dependence 181281 00 F11.20 tapering down. Benign pro static hyperplasia 950113675 N40.[address] Domínguez 2.25 Tamsulosin Leg length inequality 45 752393 M21.70 Alpha omega to eval and tx and approved orthotic or shoe build up as they see necessary to correct. [id number] IVETTE CORDOBA PA-C [facility] ([facility]) [address] [place] [address] [id number] 5 08/08/2024 15:16:15 08/09/2024 09:41:29 Iron deficiency anemia 35638097 D50.9 69392407 will do work up on his anemia. his scopes are current. he is on mutliple blood thinner.I explained his Hgb was no low enough for blood transfusio n. we can try for iron infusion one we get his levels back.Will see if his stool has blood and advice what to do with blood thinner. s [id number] IVETTE CORDOBA PA-C [facility] ([facility]) [address] [place] [address] [id number] 5 09/19/2024 15:19:20 09/19/2024 16:50:59 Abnormal gait 99739886 R26.81 790952 freq falls and feels like is his going to fall all the time. hx of mutliple knee and back surgeries. At [facility] risk for falls 249779308 Z91.81 5072111 Iron defic iency anemia secondary to inadequate dietary iron intake 912540704 D50.8 65188 levels are responding nicely to his iron infusions. Hgb back up to 12.5Will transition to oral Fe QOD and will recheck levels in one month [id number] IVETTE CORDOBA PA-C [facility] ([facility]) [address] [place] [address] [id number] 5 11/18/2024 09:56:09 11/18/2024 13:48:16 Obstructive sleep apnea syndrome 30967835 G47.33 571395 Sleep study from 09/14 at [facility] showed he needed BiPAP at 24/19 cmH2OI recommend he start BiPAP tx to better control his symptoms of Fatigue, mental fog, HTN, COPD, chronic cough and GERD.Failu re to use would cause decline in his health. Chronic cough 78204713 R 05.3 10292 working with ENT to help with drainage. also taking his GERD meds. [id number] IVETTE CORDOBA PA-C [facility] ([facility]) [address] [place] [address] [id number] 5 12/26/2024 13:30:30 12/27/2024 13:04:54 Disorder of prosthetic joint 100560662 T84.89XD M25.669 Z96.659 62791281 Obstructiv e sleep apnea syndrome 54915466 G47.33 966230 Sleep study from 09/14 at [facility] showed he needed BiPAP at 24/19 cmH2O. pt struggling with mask staying on. I recommend changing settings to 12/17 mmH20.I recommend he continues BiPAP tx to better control his symptoms of Fatigue, mental fog, HTN, COPD, chronic cough and GERD.Failu re to use would cause decline in his health. Hypoxemia 591390133 R09. 02 90782 Face to Face for Overnight o2 2 L to keep sats >90%. ok to bleed into his BiPAP machine Eczema 76961231 L30.9 322738 Abnormal gait 35026622 R 26.9 02225 freq falls and feels like is his going to fall all the time. hx of mutliple knee and back surgeries. Pain of knee region 1003 806306 M25.561 M25.562 G89.29 94551088 hx of 6 surgeries on this knee. doing well post op. lifetime use of PCN Post-disch arge follow-up 908558012 Z09 306857 12/05 to 12/19 [facility]. discharge summary reviewed. meds reconciled . no changes made. [id number] IVETTE CORDOBA PA-C [facility] ([facility]) [address] [place] [address] [id number] 5 02/21/2025 12:58:37 02/24/2025 10:22:21 Large prostate 825463158 N40.[address] Domínguez 2.25 Tamsulosin Obstructiv e sleep apnea syndrome 74233652 G47.33 33134 Sleep study from 09/14 at [facility] showed he needed BiPAP at 24/19 cmH2O. pt struggling with mask staying on. I recommend changing settings to 12/15 mmH20.I recommend he continues BiPAP tx to better control his symptoms of Fatigue, mental fog, HTN, COPD, chronic cough and GERD.Failu re to use would cause decline in his health.He is still really struggling with his settings and mask fitting. He would like a new sleep study done at [facility] Iron defic iency anemia due to blood loss 736043568 D50.0 220188 Nocturia d ue to benign prostatic hypertrophy 7642430239 101 N40.1 R35.[address] Domínguez 2.25 Tamsulosin ox Estevan Desirae Kole hematuria 32176936 5 R31.[address] Domínguez 2.25 and repeat 8.15.25new gross hematuria worsening over the last 2 weeks again. ua suspicisio us for infection. will start antibiotic while waiting for culture. Pain of le ft knee joint 0658402448 28087 M25.562 512101 hx of 6 surgeries on this knee. doing well post op. lifetime use of PCN Impairment of balance 38 7861473 R26.89 803956 Health Concerns Section Related Observation LastModified by Organization Detai ls LastModified Time None Recorded Concern Status LastModified by Organization Details LastModified Time None Recorded Advance Directives Directive None Recorded Payers Insurance Date Sequence Insurance Name Policy Number Policy Cruz Covered Member ID Cruz Member ID Guarantor Name 02/18/2025 1 [place] eMle Wang [id number] Mele Wang 02/25/2025 2 [employer] (MEDICARE SUPPLEMENT) Mele Wang [id number] Mele Omer Kathleen 02/18/2025 [place] - [place] - PART A - [facility] (MEDICARE) Mele Wang [id number] Mele Omer Kathleen Notes Date Note Type Note Provider Name and Address Organization Details Recorded Time 08/09/19 25 text/htm l AnemiaReported by PatientHPIFor context, patient reportsprevious hemoglobin:andprevious hematocrit:. For associated symptoms, patient reportsshortness of breath,shortness of breath during exertion,awakening at night short of breath (pnd),fatigue,general malaise, andpoor concentration. For duration, patient reportsconstant. For timing, patient reportsgradual. For modifying factors, patient reportsnothing gives reliefandnothing makes it worse.colonoscopy and egd in the last year both normal.He is on xarelto for afib and celebrex for severe OA.He is not seeing any blood in stool or melenaHgb was 9.6 in ER. hospital follow up 08-01-24 anemia,syncope. My hgb was low over there they did not give me any blood how low do I need to be before they give me a transfusion. I feel like I am going to pass out CCA form filled out during today's office visitPt states he passed out but then he states he fell out of truck. was with him. did not see him pass out. by the time she got around to the drivers side he was on the ground but alert . IVETTE CORDOBA PA-C [address] [place], [address], [facility] 08/09/2024 15:27:44 09/20/19 25 text/htm l AnemiaReported by PatientHPIFor context, patient reportsprevious hemoglobin:,previous hematocrit:, andlow iron. For associated symptoms, patient reportsweakness,fatigue,genera l malaise, andtingling hands and feet. For quality, patient reportscannot identify,symptoms worse during the day, andsymptoms worse in the evening. For duration, patient reportsconstant. For timing, patient reportsgradual.feeling better I have tingling in my feet is that rheumatoid arthritis. . I still dont feel up to par. I dont need iron tabs? They are discussing another surgery on my right knee. IVETTE CORDOBA PA-C [address] [place], [address], [facility] 09/19/2024 16:46:15 11/19/19 25 text/htm l Obstructive Sleep ApneaReported by PatientHPIFor associated symptoms, patient reportsmorning dry mouth,postnasal drip,gasping for air,witnessed apnea, andmouth breathingbut reportsno morning headache,no dysphagia,no awakening short of breath,no night sweats,no daytime sleepiness,no suddenly falling asleep during the day,no napping,no impaired work performance,no nasal congestion,no snoring,no hyponasal speech,no hyperactivity,normal concentration,no amnesia, andno irritability. For severity, patient reportsmoderate. For timing, patient reportsgradual,chronic, anddaily. For duration, patient reportsfrequent. For context, patient reportshistory of sleep disorder. For aggravating factors, patient reportsfatigue. For alleviating factors, patient reportspositive airway pressure devices. For prior tests and treatments, patient reportscpapandbipap. face to face for martha and need for new cpap/bipap09/16/2023 last titrating sleep study. REcommended settingsBiPAP 24/19 cm H20 IVETTE CORDOBA PA-C [address] [place], [address], [facility], [facility] 11/18/2024 13:46:17 12/27/19 text/htm l Obstructive Sleep ApneaReported by PatientHPIFor severity, patient reportsmoderate. For timing, patient reportschronic. For duration, patient reportscontinuous. For context, patient reportshistory of sleep disorderandhypertension. For aggravating factors, patient reportsfatigueandsleep disruption. For alleviating factors, patient reportspositive airway pressure devicesandpositioning. For prior tests and treatments, patient reportspolysomnography.talk with home Rash/Skin LesionReported by PatientHPIFor quality, patient reportsitchyandpainful. For location, patient reportsabdomenandleg. For severity, patient reportsmoderate. For duration, patient reports3 daysand3 weeks. For timing, patient reportsabruptandconstant. For context, patient reportsno new detergents or skin products,no one else with similar rash, andnot scratching. For alleviating factors, (cortisone ceam helsp for a couple of hours then its itchy and painful again). HOSPITAL FOLLOW UP 12-19-24 KNEE SURGERY. I NEED AN OREDER FOR PT TO WORK ON BOTH KNEES NOT JUST THE RIGHT ONE THE LEFT ONE HAS SOME EDEMA AND TENDER SPOTS IN IT. BLANCO Lee AE WANTING ME TO DO ANOTHER SLEEP STUDY AND ADD 02 TO IT. I JUST LEFT HOME THEY ARE NEEDING NEW ORDEERS TO TURN THE BIPAP DOWN SOME MORE 12/17 mmhg post op 3 weeks right knee replacement IVETTE CORDOBA PA-C [address] [place], [address], [facility], [facility] 12/27/2024 11:07:01 02/22/20 25 text/htm l Obstructive Sleep ApneaReported by PatientHPIFor associated symptoms, patient reportsawakening short of breath. For severity, patient reportsmoderate. For timing, patient reportsgradual,chronic, andyearly. For duration, patient reportscontinuous. For context, patient reportshypertension. For alleviating factors, patient reportspositive airway pressure devices. jr heartburn GERD reflux hpiReported by PatientHPIFor quality, patient reportsburning. For severity, patient reportsmoderate. For duration, patient reportspresent <1 month. For onset/timing, patient reportsgradual onsetandcontinuous. For alleviating factors, patient reportsmedicationandproton pump inhibitors. LUTSReported by PatientHPIFor associated symptoms, patient reportshematuriaandstraining. For location, patient reportsbladder. For quality, patient reportsaching,colicky, andpressure. For severity, patient reportsmoderate. For duration, patient reports2 weeks. For context, patient reportshistory of genitourinary surgeryandhistory of urethral trauma. I need my bipap settings adjusted on the high end its on 04/09 I need it lowered to 15 I WAKE UP EVERY 1-2 HOURS WITH A MOUTH FUL OF SALIVA AND CANT SLEEP WITH IT. had a TURP 6 weeks ago had some clots. was flushed and new cath put in. still noticing some blood again 2 weeks ago. IVETTE CORDOBA PA-C [address] [place], [address], [facility]/21/2025 14:31:14
--- OUTSIDE RECORDS SUMMARY | 2025-03-08 19:43 | XMS_ITS | Encounter Summary ---
Author Organization [facility] Address [address] [place] [address] Care Team Providers Care Pipe Covering Molder Name Role Phone Unavailable Primary Care Provider Unavailabl e Encounter Details Date Type Department Care Team (Latest Contact Info) Description 02/25/1998 Outpatient Historical [facility] Ear, Nose and Throat E [place] 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
--- OUTSIDE RECORDS SUMMARY | 2025-03-08 19:43 | XMS_ITS | Encounter Summary ---
Author Organization [facility] Address [address] [place] [address] Care Team Providers Care Automotive Manufacturer Name Role Phone Unavailable Primary Care Provider Unavailabl e Encounter Details Date Type Department Care Team (Latest Contact Info) Description 05/06/1998 Outpatient Historical [facility] Ear, Nose and Throat E [place] 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
--- OUTSIDE RECORDS SUMMARY | 2025-03-08 19:43 | XMS_ITS | Encounter Summary ---
Author Organization [facility] Address [address] [place] [address] Care Team Providers Care Casing Man Name Role Phone Unavailable Primary Care Provider Unavailabl e Encounter Details Date Type Department Care Team (Latest Contact Info) Description 05/07/1998 Outpatient Historical [facility] Head and Neck Surgery-E [place] [address] [place] [address] [address], [address] [place], [place] [address] Cholesteatoma, unspecified (Primary Dx) Social History Tobacco Use Types Packs/Day Years Used Date Smoking Tobacco: Never Assessed Sex and Gender Information Value Date Recorded Sex Assigned at Not on file 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
--- OUTSIDE RECORDS SUMMARY | 2025-03-08 19:44 | XMS_ITS | Encounter Summary ---
Author Organization [facility] Address [address] [place] [address] Care Team Providers Care Carroter Name Role Phone Unavailable Primary Care Provider Unavailabl e Encounter Details Date Type Department Care Team (Late st Contact Info) Description 05/08/1998 Outpatient Historical [facility] Ear, Nose and Throat E [place] 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
--- OUTSIDE RECORDS SUMMARY | 2025-03-08 19:44 | XMS_ITS | Encounter Summary ---
Author Organization [facility] Address [address] [place] [address] Care Team Providers Care Shelter Advocate Name Role Phone Unavailable Primary Care Provider Unavailabl e Encounter Details Date Type Department Care Team (Latest Contact Info) Description 05/14/1998 Outpatient Historical [facility] Ear, Nose and Throat [address] [place] 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
--- OUTSIDE RECORDS SUMMARY | 2025-03-08 19:44 | XMS_ITS | Encounter Summary ---
Author Organization [facility] Address [address] [place] [address] Care Team Providers Care Cash Register Repairer Name Role Phone Unavailable Primary Care Provider Unavailabl e Encounter Details Date Type Department Care Team (Latest Contact Info) Description 05/29/1998 Outpatient Historical [facility] Ear, Nose and Throat E [place] 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
--- OUTSIDE RECORDS SUMMARY | 2025-03-08 19:44 | XMS_ITS | Encounter Summary ---
Author Organization [facility] Address [address] [place] [address] Care Team Providers Care Tie In Hand Name Role Phone Unavailable Primary Care Provider Unavailabl e Encounter Details Date Type Department Care Team (Latest Contact Info) Description 06/26/1998 Outpatient Historical [facility] Ear, Nose and Throat E [place] 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
--- OUTSIDE RECORDS SUMMARY | 2025-03-08 19:44 | XMS_ITS | Encounter Summary ---
Author Organization [facility] Address [address] [place] [address] Care Team Providers Care Leather Belt Maker Name Role Phone Unavailable Primary Care Provider Unavailabl e Encounter Details Date Type Department Care Team (Latest Contact Info) Description 05/29/1998 Outpatient Historical [facility] Ear, Nose and Throat E [place] 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
--- OUTSIDE RECORDS SUMMARY | 2025-03-08 19:44 | XMS_ITS | Encounter Summary ---
Author Organization [facility] Address [address] [place] [address] Care Team Providers Care Tools Programmer Name Role Phone Unavailable Primary Care Provider Unavailabl e Encounter Details Date Type Department Care Team (Latest Contact Info) Description 06/26/1998 Outpatient Historical [facility] Ear, Nose and Throat E [place] 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
--- OUTSIDE RECORDS SUMMARY | 2025-03-08 19:44 | XMS_ITS | Encounter Summary ---
Author Organization [facility] Address [address] [place] [address] Care Team Providers Care Hospital Receiving Clerk Name Role Phone Unavailable Primary Care Provider Unavailabl e Encounter Details Date Type Department Care Team (Latest Contact Info) Description 05/08/1998 Outpatient Historical [facility] Ear, Nose and Throat [address] [place] 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
--- OUTSIDE RECORDS SUMMARY | 2025-03-08 19:44 | XMS_ITS | Encounter Summary ---
Author Organization [facility] Address [address] [place] [address] Care Team Providers Care Greeting Card Maker Name Role Phone Unavailable Primary Care Provider Unavailabl e Encounter Details Date Type Department Care Team (Late st Contact Info) Description 05/14/1998 Outpatient Historical [facility] Ear, Nose and Throat E [place] 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
--- OUTSIDE RECORDS SUMMARY | 2025-03-08 19:44 | XMS_ITS | Encounter Summary ---
Author Organization [facility] Address [address] [place] [address] Care Team Providers Care Route Salesperson Name Role Phone Unavailable Primary Care Provider Unavailabl e Encounter Details Date Type Department Care Team (Late st Contact Info) Description 05/14/1998 Outpatient Historical [facility] Ear, Nose and Throat E [place] 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
--- OUTSIDE RECORDS SUMMARY | 2025-03-08 19:45 | XMS_ITS | Encounter Summary ---
Author Organization [facility] Address [address] [place] [address] Care Team Providers Care Electronic Warfare Linguist Name Role Phone Unavailable Primary Care Provider Unavailabl e Encounter Details Date Type Department Care Team (Latest Contact Info) Description 08/16/1999 Outpatient Historical [facility] Ear, Nose and Throat E [place] 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
--- OUTSIDE RECORDS SUMMARY | 2025-03-08 19:45 | XMS_ITS | Encounter Summary ---
Author Organization [email or web address] Address [address] [place] [address] Care Team Providers Care Director Video Name Role Phone Unavailable Primary Care Provider Unavailabl e Encounter Details Date Type Department Care Team (Latest Contact Info) Description 02/05/1999 Outpatient Historical [facility] Luis Angel Esquivel Jr., MD [address] [place] [address] Dermatophytosis of foot (Primary Dx); Orchitis and epididymitis, unspecified; nursing home (current) use of anticoagulants Social History Tobacco Use Types Packs/Day Years Used Date Smoking Tobacco: Never Assessed Sex and Gender Information Value Date Recorded Sex Assigned at Not on file Legal 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
--- OUTSIDE RECORDS SUMMARY | 2025-03-08 19:45 | XMS_ITS | Encounter Summary ---
Author Organization [facility] Address [address] [place] [address] Care Team Providers Care Chief Engineer Drilling And Recovery Name Role Phone Unavailable Primary Care Provider Unavailabl e Encounter Details Date Type Department Care Team (Latest Contact Info) Description 05/07/1998 Outpatient Historical [facility] Ear, Nose and Throat E [place] 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
--- OUTSIDE RECORDS SUMMARY | 2025-03-08 19:45 | XMS_ITS | Clinical Summary ---
Author Organization [facility] Address [address] 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
--- OUTSIDE RECORDS SUMMARY | 2025-03-08 19:45 | XMS_ITS | Encounter Summary ---
Author Organization [facility] Address [address] [place] [address] Care Team Providers Care Sheep Rancher Name Role Phone Unavailable Primary Care Provider Unavailabl e Encounter Details Date Type Department Care Team (Latest Contact Info) Description 05/07/1998 Outpatient Historical [facility] Ear, Nose and Throat E [place] 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
--- OUTSIDE RECORDS SUMMARY | 2025-03-08 19:46 | XMS_ITS | Encounter Summary ---
Author Organization [facility] Address [address] [place] [address] Care Team Providers Care Brothel Keeper Name Role Phone Unavailable Primary Care Provider Unavailabl e Encounter Details Date Type Department Care Team (Late st Contact Info) Description 08/28/1998 Outpatient Historical [facility] Ear, Nose and Throat [address] [place] [address] [place] [address] Social History Tobacco Use Types Packs/Day Years Used Date Smoking Tobacco: Never Assessed Sex and Gender Information Value Date Recorded Sex Assigned at Not on file Legal Sex Male 3:39 AM SPECIAL SERVICES COORDINATOR Gender Identity Not on file Sexual Orientation Not on file documented as of this encounter Plan of Treatment Not on file documented as of this encounter Visit Diagnoses Not on filedocumented in this encounter
--- OUTSIDE RECORDS SUMMARY | 2025-03-08 19:46 | XMS_ITS | Encounter Summary ---
Author Organization [facility] Address [address] [place] [address] Care Team Providers Care Evp Operations Name Role Phone Unavailable Primary Care Provider Unavailabl e Encounter Details Date Type Department Care Team (Latest Contact Info) Description 08/28/[address] [facility] Ear, Nose and Throat E [place] 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
--- NOTE | 2025-03-08 21:34 | CTR_ITS ---
PROCEDURE INFORMATION: Exam: CT Maxillofacial Without Contrast Exam date and time: 03/08/2025 9:47 PM Age: 74 years old Clinical indication: Injury or trauma; Blunt trauma (contusions or hematomas); Jaw; Bilateral; Fall face first onto ground outside in [place] while deer hunting. Anticoagulated. ; Additional info: Injury, on xarelto TECHNIQUE: Imaging protocol: Computed tomography of the face without contrast. Radiation optimization: All CT scans at this facility use at least one of these dose optimization techniques: automated exposure control; mA and/or kV adjustment per patient size (includes targeted exams where dose is matched to clinical indication); or iterative reconstruction. COMPARISON: CT head wo con* [id number] 03/08/2025 9:45 PM RADIATION DOSE METRICS: Total DLP (mGy-cm): 623.98 FINDINGS: Paranasal sinuses: There is paranasal sinus disease with scattered opacification in the ethmoid air cells and nearing secretions in the left maxillary sinus. Orbital cavities: Orbits are normal. Globes are unremarkable. Mastoid air cells: Postoperative findings of right canal wall-up mastoidectomy. Opacification of the remaining right mastoid air cells. Bones: Suspected fracture of the left styloid process, (series 8, image 17). Suspected fracture of the anterior nasal spine. Subtle age-indeterminate nasal bone deformities. Please correlate with point tenderness. Soft tissues: Unremarkable. CT/CT facial bones wo con* [id number] IMPRESSION: 1. Suspected fracture of the left styloid process, (series 8, image 17). Please correlate with point tenderness. 2. Suspected fracture of the anterior nasal spine. 3. Subtle age-indeterminate nasal bone deformities. Please correlate with point tenderness. 4. Paranasal sinus disease as outlined. 5. Postoperative and inflammatory changes in the right mastoid air cells.
--- NOTE | 2025-03-08 21:34 | CTR_ITS ---
PROCEDURE INFORMATION: Exam: CT Head Without Contrast Exam date and time: 03/08/2025 9:45 PM Age: 74 years old Clinical indication: Injury or trauma; Blunt trauma (contusions or hematomas); Fall face first onto ground outside in [place] while deer hunting. Anticoagulated. ; Additional info: Injury, on xarelto TECHNIQUE: Imaging protocol: Computed tomography of the head without contrast. Radiation optimization: All CT scans at this facility use at least one of these dose optimization techniques: automated exposure control; mA and/or kV adjustment per patient size (includes targeted exams where dose is matched to clinical indication); or iterative reconstruction. COMPARISON: CT head wo con* [id number] 07/31/2024 11:50 PM RADIATION DOSE METRICS: Total DLP (mGy-cm): 1127.58 FINDINGS: Brain: No acute intra- or extra axial fluid collections are identified. The basal cisterns are patent. No mass effect or midline shift is seen. Mild hypoattenuation in the bilateral calixto radiata may represent a component of the small-vessel ischemic disease or age indeterminate, likely chronic infarcts. The west-white matter differentiation is otherwise grossly maintained. Periventricular hypoattenuation are nonspecific but likely the sequela of chronic small vessel ischemic disease. Cerebral ventricles: Subjective mild cerebral volume loss and mild ex vacuo dilation of the ventricles which could be within normal limits for the patient's stated age. Paranasal sinuses: There is mild paranasal sinus disease. There are scattered opacification in the ethmoid air cells. There is layering secretions in the left maxillary sinus. Mastoid air cells: The patient is status post canal wall-down right mastoidectomy. There is opacification of the remaining right mastoid air cells. The left mastoid air cells appear grossly clear. Orbital cavities: The orbits appear normal. Bones: No acute calvarial fracture is identified. Soft tissues: No soft tissue abnormalities identified. Vasculature: There are atherosclerotic calcifications of the carotid siphons. CT/CT head wo con* [id number] IMPRESSION: No evidence of acute intracranial hemorrhage, mass effect, or midline shift.
--- NOTE | 2025-03-08 21:34 | XRR_ITS ---
PROCEDURE INFORMATION: Exam: XR Right Hand Exam date and time: 03/08/2025 9:36 PM Age: 74 years old Clinical indication: Injury or trauma; Hand; Right; Laceration due to fall outside inbetween first and second digit. TECHNIQUE: Imaging protocol: Radiologic exam of the right hand. Views: 3 or more views. COMPARISON: No relevant prior studies available. FINDINGS: Bones/joints: No acute fracture or dislocation. Polyarticular DJD. Soft tissues: No radiopaque foreign body. Soft tissue laceration. XR/XR hand RT min 3V* [id number] IMPRESSION: No acute bony findings.
--- NOTE | 2025-03-08 21:34 | CTR_ITS ---
PROCEDURE INFORMATION: Exam: CT Cervical Spine Without Contrast Exam date and time: 03/08/2025 9:49 PM Age: 74 years old Clinical indication: Injury or trauma; Blunt trauma; Fall face first onto ground outside in [place] while deer hunting. Anticoagulated. ; Additional info: Injury, on xarelto TECHNIQUE: Imaging protocol: Computed tomography of the cervical spine without contrast. Radiation optimization: All CT scans at this facility use at least one of these dose optimization techniques: automated exposure control; mA and/or kV adjustment per patient size (includes targeted exams where dose is matched to clinical indication); or iterative reconstruction. COMPARISON: CT cervical spin wo con* [id number] 07/31/2024 11:53 PM RADIATION DOSE METRICS: Total DLP (mGy-cm): 500.67 FINDINGS: Bones: Gentle kyphosis of the cervical spine. Minimal anterolisthesis of C3 on C4. Minimal retrolisthesis of C5 on C6. The alignment is otherwise maintained. The vertebral body heights are maintained. No evidence of acute fractures. 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 Multilevel degenerative disc and joint disease with disc osteophyte complex is resulting in minimal indentation on the ventral aspect of the thecal sac and minimal spinal canal stenosis at C5-C6 through C7-T1. No high-grade spinal canal stenosis. There are degenerative changes of the facet and uncovertebral joints with the same degree of neural foraminal stenosis, worst at C4-C5 and C5-C6 bilaterally, and at C3-C4 at C6-C7 on the left. Lungs: Lung apices are normal. Lymph nodes: There are scattered cervical lymph nodes are nonspecific. Vasculature: There are atherosclerotic calcifications of the carotid bifurcations. Soft tissues: Unremarkable. CT/CT cervical spin wo con* [id number] IMPRESSION: No evidence of acute fracture or traumatic malalignment in the cervical spine.
--- NOTE | 2025-03-08 21:36 | W.ED.FALL ---
HPI - Fall General: Chief Complaint: Fall Stated Complaint: Laceration on RT hand between finger and thumb History of Present Illness: Patient is a 74-year-old male with history of A-fib on Xarelto, presents after falling. He was walking 4, tripped, fell forward with outstretched hands, and hit his chin. Complaints: Right webbing between thumb and index laceration, neck pain, left jaw pain from contusion. Occurred just prior to arrival Patient had bleeding on his right hand. No issues with swallowing. Associated symptoms-after fall: Denies abdominal pain, difficulty walking, headache(s) or hematuria Related Data Home Medications ?Medication ?Instructions ?Recorded ?Confirmed cetirizine 10 mg capsule 10 mg PO DAILY 05/06/19 11/07/24 rosuvastatin 10 mg tablet 10 mg PO ONCE 05/06/19 11/07/24 tamsulosin 0.4 mg capsule 0.4 mg PO BID 05/06/19 11/07/24 alendronate 70 mg tablet (Fosamax) mg PO .weekly 12/29/21 11/07/24 calcium 500 mg (as 1 tab PO .2 times day 12/29/21 11/07/24 carbonate)-vitamin D3 15 mcg (600 unit) tablet (Os-Clark 500 + D3) memantine 21 mg capsule See Rx Instructions PO .COMPLEX 12/29/21 11/07/24 sprinkle,extended release 24hr furosemide 40 mg tablet 40 mg PO DAILY 12/15/22 11/07/24 gabapentin 300 mg capsule 300 mg PO TID 12/15/22 11/07/24 losartan 50 mg tablet 50 mg PO DAILY 12/15/22 11/07/24 potassium chloride 20 mEq 20 meq PO DAILY 12/15/22 11/07/24 tablet,extended release(part/cryst) allopurinol 100 mg tablet 100 mg PO DAILY 10/23/23 11/07/24 donepezil 10 mg tablet 10 mg PO DAILY 10/23/23 11/07/24 indapamide 2.5 mg tablet 2.5 mg PO DAILY 10/23/23 11/07/24 penicillin V potassium 500 mg 500 mg PO BID 10/23/23 11/07/24 tablet trazodone 50 mg tablet 50 mg PO DAILY 10/23/23 11/07/24 buprenorphine HCl 8 mg sublingual 8 mg sublingual Q8H 11/07/24 11/07/24 tablet Previous Rx's ?Medication ?Instructions ?Recorded duloxetine 30 mg capsule,delayed 60 mg (2 x 30 mg) PO DAILY #90 caps 12/29/21 release (Cymbalta) famciclovir 500 mg tablet 500 mg PO Q12H PRN herpes simplex 12/15/22 #60 tabs rivaroxaban 20 mg tablet (Xarelto) 20 mg PO DAILY #30 tabs 11/07/24 pantoprazole 40 mg tablet,delayed 40 mg PO DAILY #90 tabs 02/16/25 release (Protonix) cephalexin 500 mg capsule 500 mg PO BID 5 days #10 caps 03/09/25 Allergies Allergy/AdvReac Type Severity Reaction Status Date / Time amoxicillin (From Augmentin) Allergy Intermediate gets Verified 11/07/24 10:47 really sick, like the flu clavulanic acid (From Allergy Intermediate gets Verified 11/07/24 10:47 Augmentin) really sick, like the flu hydromorphone (From Dilaudid) Allergy coded Verified 11/07/24 10:47 Review of Systems Const: Reports: change in weight (gain); Denies: fever(s), change in appetite, fatigue or change in sleep pattern Eyes: Denies: eye discomfort ENMT: Denies: odynophagia, hoarseness, swelling of lips/tongue or nasal congestion Card: Reports: irregular heart rhythm (Atrial fibrillation using Xarelto daily); Denies: swelling of feet/ankles Resp: Denies: dyspnea, productive cough or non-productive cough GI: Denies: abdominal pain, dysphagia or change in bowel habits : Denies: hematuria Musc: Reports: back pain and joint pain; Denies: joint swelling, joint warmth or joint stiffness Skin/Breast: Denies: rash or pruritus Neuro: Denies: headache(s), difficulty walking or dizziness Psych: Denies: anxiety, depression, irritability or suicidal ideation Endo: Denies: polyuria or polydipsia [place]/Lymph: Denies: easy bruising or enlarged lymph nodes All/Imm: Reports: seasonal rhinorrhea PFSH ED PFSH: Medical History (Updated 03/09/25 @ 00:20 by RL Castillo) Anticoagulated on Xarelto GERD (gastroesophageal reflux disease) Rachel-Sparks tear History of renal calculi Atrial fibrillation Osteoporosis Surgical History History of knee replacement Status post left inguinal hernia repair Status post right inguinal hernia repair S/P ear surgery History of umbilical hernia repair History of colonoscopy 2016, at [facility]/27/2022 History of esophagogastroduodenoscopy 2019 Status post laparoscopic cholecystectomy History of GI bleed repair GI bleed in @ [facility] History of kyphoplasty L1 2013 History of heart artery stent 2012 Family History Other Cancer Diabetes Heart disease Social History Smoking and tobacco/nicotine status: former use of tobacco/nicotine Second hand smoke exposure: No Alcohol intake: never Substance/Drug Use: never Adopted: No Caregiver/support person: No Lives independently: Yes Household members: spouse Housing: House Marital status: service: No Current occupational status: retired Do you think of yourself as: Straight/Heterosexual Current gender identity: Male Physical Exam Const: GENERAL APPEARANCE: cooperative and well kempt ORIENTATION/CONSCIOUSNESS: Yes oriented to person, Yes oriented to place and Yes oriented to time HENMT: COMMON NORMALS: external ears normal and Normal nasal mucous membranes and turbinates present NOSE: Normal nasal mucous membranes and turbinates present and No nasal discharge present EXTERNAL EAR: Yes external ears normal MOUTH: Normal oral and palatal mucosa present Eye: COMMON NORMALS: Equal, round and reactive pupils present and conjunctivae normal EYELID: eyelids normal CONJUNCTIVA: Yes conjunctivae normal PUPIL: Yes Equal, round and reactive pupils present Neck/C-Spine: COMMON NORMALS: full ROM, no lymphadenopathy, supple, no meningeal signs and Thyroid normal GENERAL: Yes normal visual inspection and Yes trachea midline THYROID: Thyroid normal CERVICAL SPINE: Yes cervical ROM normal, No Cervical spine tenderness and No Paracervical muscle tenderness Chest: CHEST: Yes Symmetrical chest wall rise Resp: COMMON NORMALS: clear to auscultation bilaterally EFFORT & INSPECTION: Yes able to speak in complete sentences AUSCULTATION: clear to auscultation bilaterally Cardio: COMMON NORMALS: regular rate RATE: regular rate RHYTHM: abnormal rhythm irregularly irregular HEART SOUNDS: Murmur heart sound present (soft ) PERIPHERAL PULSES: dorsalis pedis present positive bilateral GI: COMMON NORMALS: Soft to palpation AUSCULTATION: Yes normoactive bowel sounds PALPATION: Yes Soft to palpation and No Tenderness to palpation present (GI) Back/Pelvis: LUMBAR SPINE/LOWER BACK: Yes paraspinal muscle tenderness Extremity: GENERAL: Yes edema (trace) Neuro: SENSORIUM/ORIENTATION: Yes oriented to person, Yes oriented to place and Yes oriented to time MENINGEAL SIGNS: Yes no meningeal signs SPEECH: speech normal GAIT: Yes Antalgic gait present (left) Psych: COMMON NORMALS: speech normal APPEARANCE: Yes well kempt ATTITUDE: Yes engaged SPEECH: Yes normal speech MOOD & AFFECT: Yes elevated mood Skin: GENERAL SKIN EXAM: no erythema and scars (knee left) Procedures Laceration Laceration 1: Site: hand Side (If applicable): right (webbing between thumb and index finger) Size (cm): 6 Description: linear and flap Depth: simple, single layer Local Anesthetic: lidocaine 1% Amount of anesthesia used (mL): 5 Pre-repair: wound explored and irrigated extensively Skin layer closed with: nylon Size (cm): 4-0 Number of sutures: 6 Technique: simple, interrupted Laceration 2: Site: hand (thumb, medial side) Side (If applicable): right Size (cm): 2 Depth: simple, single layer Local Anesthetic: lidocaine 1% Amount of anesthesia used (mL): 1 Pre-repair: wound explored and irrigated extensively Skin layer closed with: nylon Size (cm): 4-0 Number of sutures: 1 Technique: simple, interrupted (At the V, the rest is superficial) Course Consultations: Consultation #1: d/w Dr. Rainey, oral maxillofacial surgeon at [facility] that states he is okay to be discharged with possible left styloid fracture face. Vital Signs: Vital signs: Vital Signs Temperature 97.9 F 03/08/25 19:40 Pulse Rate 62 03/09/25 00:15 Respiratory Rate 18 03/09/25 00:15 Blood Pressure 116/76 03/09/25 00:15 Pulse Oximetry 93 03/09/25 00:15 Oxygen Delivery Me thod Room Air 03/09/25 00:15 MDM - Fall Medical Decision Making Patient is a 74-year-old gentleman, that fell forward after tripping, with his hands stretched out. He has a laceration to his right webbing between his thumb and index finger, and a laceration on his palmar thumb that is more superficial. The V on the thumb was placed a stitch in, the rest was fairly superficial. notes that he has issues with pulling things apart, therefore this would be best for this patient. Steri-Strips were applied to this area. 6 sutures were placed in the webbing. Patient tolerated well after good anesthesia. I discussed the case with on-call maxillofacial physician Dr. Nicholas, at [facility], however no additional care would be needed if patient did have left styloid fracture. Of note, he is not having any issues swallowing. Wound care was given to and patient. We went over all the concerns. No additional concerns were noted. All their questions answered to their satisfaction. Medical Records I reviewed the patient's medical records. Lab Data I reviewed the patient's lab results. Radiology Impressions Cervical Spine CT 03/08/25 21:34 IMPRESSION: No evidence of acute fracture or traumatic malalignment in the cervical spine. Face CT 03/08/25 21:34 IMPRESSION: 1. Suspected fracture of the left styloid process, (series 8, image 17). Please correlate with point tenderness. 2. Suspected fracture of the anterior nasal spine. 3. Subtle age-indeterminate nasal bone deformities. Please correlate with point tenderness. 4. Paranasal sinus disease as outlined. 5. Postoperative and inflammatory changes in the right mastoid air cells. Hand X-Ray 03/08/25 21:34 IMPRESSION: No acute bony findings. Head CT 03/08/25 21:34 IMPRESSION: No evidence of acute intracranial hemorrhage, mass effect, or midline shift. ADDENDUM: 03/08/25 [id number] ADDENDUM: Correction of typographical error. Definitive sentence of the Mastoid air cells in the findings should read: Mastoid air cells: The patient is status post canal wall-up right mastoidectomy. All radiology interpretation(s) finalized by discharge Discharge Plan Discharge Patient Disposition: Home Clinical Impression: Laceration of hand, right, complicated Condition: Stable Prescriptions: New cephalexin 500 mg capsule 500 mg PO BID 5 Days Qty: 10 0RF No Action rosuvastatin 10 mg tablet 10 mg PO ONCE tamsulosin 0.4 mg capsule 0.4 mg PO BID cetirizine 10 mg capsule 10 mg PO DAILY potassium chloride 20 mEq tablet,ER particles/crystals 20 meq PO DAILY furosemide 40 mg tablet 40 mg PO DAILY losartan 50 mg tablet 50 mg PO DAILY famciclovir 500 mg tablet 500 mg PO Q12H PRN (Reason: herpes simplex) Qty: 60 0RF donepezil 10 mg tablet 10 mg PO DAILY penicillin V potassium 500 mg tablet 500 mg PO BID indapamide 2.5 mg tablet 2.5 mg PO DAILY trazodone 50 mg tablet 50 mg PO DAILY allopurinol 100 mg tablet 100 mg PO DAILY duloxetine [Cymbalta] 30 mg capsule,delayed release(DR/EC) 60 mg PO DAILY Qty: 90 0RF memantine 21 mg capsule,sprinkle,ER 24hr See Rx Instructions PO .COMPLEX Rx Instructions: 10mg orally 2 time daily; alendronate [Fosamax] 70 mg tablet PO .weekly calcium carbonate-vitamin D3 [Os-Clark 500 + D3] 500 mg-15 mcg (600 unit) tablet 1 tab PO .2 times day gabapentin 300 mg capsule 300 mg PO TID Xarelto 20 mg tablet 20 mg PO DAILY Qty: 30 11RF buprenorphine HCl 8 mg tablet, sublingual 8 mg sublingual Q8H Patient Comments: Pain management in [facility] [place] pantoprazole [Protonix] 40 mg tablet,delayed release (DR/EC) 40 mg PO DAILY Qty: 90 3RF Discharge Orders: Discharge ED (Routine); Ordered 03/09/25 Ordered By: Muriel Hi Referrals: Ivette Cordoba PA [Primary Care Provider, [employer]] Discharge Diet: Usual diet Discharge Activity: Limit activity as instructed Patient Instructions: Laceration (ED), Patient Portal & Levi Instructions Activity Restrictions/Additional Instructions: Antibiotics at the pharmacy: Cephalexin. Start in the morning. Use as directed. This is prophylaxis. Remove sutures in 8-10 days Only apply antibiotic ointment for the first 24 hours, then avoid antibiotic ointment as this can be corrosive to the skin Make sure you wash this area with antibacterial soap or pHisoDerm daily. If you go back outside to work, cover this area, otherwise you may leave uncovered. When covering: Place Vaseline gauze or Vaseline over the wound and cover. Steri-Strips will come off your thumb naturally, do not pick these off. The stitch on the thumb may also be removed in 8-10 days. -Ice and Tylenol for pain. Utilize probiotic or active culture yogurt to avoid infectious diarrhea You have 6 stitches in between your fingers, and 1 on your thumb. Please return to ED if there is redness outside of this area, streaking, discharge, fever greater than 100.4 ?F Thank you for choosing [facility] for your healthcare needs today. You have been screened and evaluated and felt safe for discharge. Health conditions do change or evolve sometimes and as such it is important that you follow up with your Primary Doctor to be re checked, 3-5 days is a general good time frame for follow up. You are always welcome to return to the ED for re assessment if your symptoms are worsening or you have new concerns Print Language: Tamazight Coding Level of Care Code ED Financial Reporting Manager for Gwen Perez
[2025-03-08 23:13] VITALS: PULSE 58; RESP 16; O2SAT 94
[2025-03-08 23:39] VITALS: BP 104/67; PULSE 56; RESP 16; O2SAT 94
[2025-03-09 00:15] VITALS: BP 116/76; PULSE 62; RESP 18; O2SAT 93
[2025-03-09 00:46] VITALS: BP 115/76; PULSE 62; RESP 18; O2SAT 95
== END 2025-03-09 00:49 | disposition home or self-care (01) ==
PROVIDERS: Emergency Provider Physician Assistant; PCP Physician Assistant
DX: S61.411A Laceration without foreign body of right hand, initial encounter (principal); S61.011A Laceration without foreign body of right thumb without damage to nail, initial encounter; Z87.891 Personal history of nicotine dependence; W19.XXXA Unspecified fall, initial encounter
CPT/HCPCS: 12004; 70450; 70486; 72125; 73130; 99284; J9999

== ENCOUNTER 2025-03-17 09:05 | Outpatient (RCR) | payer MEDICARE, OTHER, SELFPAY | END 2025-03-23 23:59 | disposition home or self-care (01) | LOC: APT 09:05 | PROVIDERS: PCP Physician Assistant; Visit Provider Physician Assistant | DX: R26.89 Other abnormalities of gait and mobility (principal); M25.562 Pain in left knee | CPT/HCPCS: 97110; 97161 ==

== ENCOUNTER 2025-04-07 20:12 | Outpatient (CLI) | payer MEDICARE, OTHER, SELFPAY | END 2025-04-07 20:13 | disposition home or self-care (01) | LOC: SLEEP 20:14 | PROVIDERS: PCP Nurse Practitioner; Referring Provider Physician Assistant; Visit Provider Internal Medicine Pulmonary Disease | DX: G47.33 Obstructive sleep apnea (adult) (pediatric) (principal) | CPT/HCPCS: 95811 ==

== ENCOUNTER 2025-04-23 09:45 | Outpatient (RCR) | payer MEDICARE, OTHER, SELFPAY | END 2025-04-23 23:59 | disposition home or self-care (01) | LOC: APT 09:45 | PROVIDERS: PCP Physician Assistant; Visit Provider Physician Assistant | DX: R26.89 Other abnormalities of gait and mobility (principal); M25.562 Pain in left knee; Z96.652 Presence of left artificial knee joint | CPT/HCPCS: 97110; 97112; 97530 ==